=== PATIENT | male | born 1930 | race Caucasian/White ===

== ENCOUNTER 2016-08-18 20:17 | Inpatient (IN) | payer MEDICARE, BC ==
[2016-08-18] MEDS ORDERED: HYDROmorphone HCL 1 MG/ML DISP.SYRIN IV ONE (21:01)
--- OUTSIDE RECORDS SUMMARY | 2016-08-18 21:07 | XMS REPORT | Continuity of Care Document ---
:1930 Author Organization [facility] ([facility]) Address [address] [place] [address] Phone [phone] Care Team Providers Name Role Phone Frank Pérez Primary Care Provider [phone] Source Comments This disclosure is being made pursuant to the Care Everywhere program, applicable federal and state laws, and may not contain all informaitonavailable regarding this patient.[facility] ([facility]) Active Allergies and Adverse Reactions Allergen Noted Date Severity Reactions Comments No Known Allergies 05/04/2011 NO REACTION Current Medications Prescription Sig. Disp. Refills Start Date End Date Status allopurinol 300 mg tablet Take 100 mg by Active mouth 2 times daily nitroglycerin 0.[address] 0.4 mg under Active tablet the tongue every 5 minutes as needed. diltiazem 180 mg ER Take 180 mg by Active capsule mouth daily furosemide 20 mg tablet Take 80 mg by mouth Active daily. CALCIUM CARBONATE/VITAMIN Active D3 (VITAMIN D-3 PO) isosorbide mononitrate 30 Take 30 mg by mouth Active mg CR tablet every morning. losartan 25 mg tablet Take 12.5 mg by Active mouth daily. warfarin PO Active finasteride 5 mg tablet Take 5 mg by mouth Active daily. tamsulosin 0.4 mg capsule Take 0.4 mg by Active mouth daily. simvastatin 10 mg tablet Take 10 mg by mouth Active every evening. Active Problems Problem Noted Date Atrial flutter 11/20/2014 Renal insufficiency 11/20/2014 Hyperlipidemia 11/20/2014 Coronary artery disease 11/20/2014 Gout 11/20/2014 GERD (gastroesophageal reflux disease) 11/20/2014 Diverticulitis 11/20/2014 Paroxysmal atrial fibrillation 11/20/2014 HTN (hypertension) 09/17/2010 Most Recent Encounters Date Type Specialty Providers Description 06/23/2016 Office Visit Heart and Vascular Alexander Olson MD Chief Comp: Patient Reported Reason For Visit 06/09/2016 Office Visit [facility] and Vascular Alexander Olson MD Chief Comp: Patient Pinky Coe ARNP Reported Reason For Visit 05/26/2016 Office Visit [facility] and Vascular Alexander Olson MD Chief Comp: Patient Pinky Coe ARNP Reported Reason For Visit Social History Tobacco Use Types Packs/Day Years Used Date Former Smoker Cigars Smokeless Tobacco: Never Used Alcohol Use Drinks/Week oz/Week Comments Yes Last Filed Vital Signs Vital Sign Reading Time Taken Blood Pressure 125/72 03/30/2016 9:02 AM [employer]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 Pulse 84 03/30/2016 9:02 AM 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 Temperature 36.6 C (97.9 F) 05/06/2011 10:55 AM TIEING 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 Respiratory Rate 14 09/16/2015 11:13 AM CDT Height 1.829 m (6') 09/16/2015 11:13 AM CDT Weight 91.3 kg (201 lb 4.5 oz) 03/30/2016 9:02 AM TIEING 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 Body Mass Index 27.29 03/30/2016 9:02 AM TIEING 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 Oxygen Saturation - - Plan of Care Health Maintenance Due Date Last Done Comments Hepatitis B Vaccine (1 of 3 - Primary Series) 1930 Tdap Vaccine 1941 Lipid Disorder Screening 1948 Td Vaccine 1948 Zoster Vaccine 1990 Pneumococcal Vaccine (1 of 2 - PCV13) 1995 Influenza Vaccine: Seasonal (#1) 10/07/2015 Results from Last 3 Months Not on file
[2016-08-18] MEDS ORDERED: HYDROmorphone HCL 1 MG/ML DISP.SYRIN ONE (21:09)
--- NOTE | 2016-08-18 21:13 | ERNOTE ---
Chest Pain/Cardiac HPI Date of Service: 08/18/16 Chief Complaint: Chest Pain Source: patient, family Exam Limitations: no limitations Immunizations: IMMUNIZATION HX Immunizations Up to Date Yes History of Influenza Vaccine Yes Hx Pneumococcal Vaccination Yes Allergies/Adverse Reactions: Allergies No Known Allergies Allergy (Verified 08/18/16 20:48) Home Medications: HOME MEDICATIONS Allopurinol [Zyloprim] 100 mg PO BID 11/03/15 [Last Taken Unknown] Calcitriol 0.25 mcg PO MOWEFR 11/03/15 [Last Taken Unknown] Cholecalciferol (Vitamin D3) [Vitamin D3] 2,000 unit PO DAILY 11/03/15 [Last Taken Unknown] Diltiazem HCl [Cardizem LA] 180 mg PO DAILY 11/03/15 [Last Taken Unknown] Furosemide [Lasix] 20 mg PO Q2D 11/03/15 [Last Taken Unknown] Isosorbide Mononitrate [Imdur] 30 mg PO DAILY 11/03/15 [Last Taken Unknown] Losartan Potassium [Cozaar] 25 mg PO HS 11/03/15 [Last Taken Unknown] Nitroglycerin 0.4 mg SL PRN PRN 11/03/15 [Last Taken Unknown] Simvastatin [Zocor] 10 mg PO HS 11/03/15 [Last Taken Unknown] Warfarin Sodium [Coumadin] 5 mg PO DAILY 11/03/15 [Last Taken Unknown] Furosemide [Lasix] 80 mg PO Q2D 08/18/16 [Last Taken Unknown] Narrative: Has had non-productive cough for several days. Today became more SOB and developed lower sub-sternal chest pain. Seemed to come on rapidly and has been associated with chills. No radiation of CP, diaphoresis, arm pain or radiation. Has also noted swelling of ankles despite taken his daily lasix. Seen by PCP on Wednesday and scheduled to see cardiology for routine check tomorrow. Did not take any meds for pain prior to ED. Review of Systems - Review of Systems Constitutional: Present: chills EYE: Present: no symptoms reported ENT: Present: no symptoms reported Respiratory: Present: shortness of breath Cardiology: Present: chest pain Gastrointestinal/Abdominal: Present: no symptoms reported Genitourinary: Present: no symptoms reported Musculoskeletal: Present: no symptoms reported Skin: Present: no symptoms reported Neurological: Present: no symptoms reported - Patient's Past Medical History Patient History - Medical: GERD, Osteoarthritis, Renal Disease, Other Patient History - Cardiac/Respiratory: Atrial Fibrillation, Arrhythmias, Other - CHD s/p CABG Patient History - Cancer: No Hx of Cancer Patient History - Surgical Procedures: Other Patient History - Other: None - Family History Father Family History - Medical: , No pertinent hx Family History - Cardiac/Respiratory: Coronary Heart Disease Family History - Cancer: Pancreatic Mother Family History - Medical: , No pertinent hx - Social History Living Situations: spouse Abuse History: No History of abuse Psych History: No pertinent hx Smoking Status: Former smoker Have you smoked in the past 12 months: No Do you dip or chew tobacco: No Alcohol Use: occasionally Drug Use: none - Immunizations Immunizations Up to Date: Yes Hx Pneumococcal Vaccination: Yes History of Influenza Vaccine: Yes Physical Exam - Physical Exam General Appearance: Present: wd/wn, alert, mild distress Eye Exam: Normal inspection: bilateral Ears, Nose, Throat: Present: normal ENT inspection Neck: Present: normal inspection Respiratory: Present: chest nontender, lungs clear, decreased breath sounds Cardiovascular/Chest: Present: other - irregular Peripheral Pulses: N=norm/S=strong/W=weak/B=bound/A=absent: Dorsalis-pedis (R): Weak, Dorsalis-pedis (L): Weak Gastrointestinal/Abdominal: Present: nontender, soft Extremity Exam: Present: normal inspection, non-tender, extremity edema Neurological Exam: Present: alert, oriented, normal mood/affect, no motor/ sensory deficits ED Progress - Results and Orders Patient's Lab Results:: I have reviewed the patient's lab results. - Vital Signs Patient's Vital Signs:: I have reviewed the patient's vital signs. 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 Discussed with Patient and hospitalist. Will admit for obs Plan - Plan Plan: admit obs Departure - Departure Clinical Impression: Pneumonia, CHF (congestive heart failure) Disposition: [facility] Condition: Fair Referrals: Frank Pérez MD [Primary Care Provider] -
[2016-08-18 21:16] LABS: Hematocrit 39.2 % (42.0-52.0); Hemoglobin 13.6 gm/dL (13.5-18.0); Mean Cell Volume 92.2 fl (78-100); Mean Corpuscular Hgb Conc 34.7 g/dl (32-36); Mean Platelet Volume 8.8 fl (6.0-9.5); Neutrophil # 11.1 K/mm3 (1.3-6.0); Neutrophil % 82.2 % (42-75.0); Platelet Count 177 K/mm3 (150-450); Red Blood Count 4.25 M/mm3 (4.7-6.0); Red Cell Distribution Width 16.7 % (11.5-14.0); White Blood Count 13.5 K/mm3 (4.0-10.5)
[2016-08-18 21:35] LABS: Troponin I 0.109 ng/ml (0.00-0.10)
[2016-08-18 21:37] LABS: Albumin * 3.8 gm/dl (3.4-5.0); Anion Gap 12.4 mmol/L (6.8-13.8); BUN/Creatinine Ratio 27.3 (9.0-21.6); Ca. Corrected For Albumin 9.2 mg/dL (8.4-10.2); Calcium * 9.4 mg/dL (7.9-10.9); Potassium 3.4 mmol/L (3.4-4.6); Total Protein 7.3 gm/dL (6.2-8.2)
[2016-08-18 21:38] LABS: Prothrombin Time (Patient) 19.8 Seconds (9.4-11.4)
[2016-08-18 21:40] LABS: INR 1.9 INR (0.90-1.10); Partial Thrombolplastin Time 32.3 Seconds (24-32)
[2016-08-18] MEDS ORDERED: FUROSEMIDE 10 MG/ML VIAL IV ONE (21:50)
[2016-08-18] MEDS ORDERED: FUROSEMIDE 10 MG/ML VIAL ONE (21:52)
--- OUTSIDE RECORDS SUMMARY | 2016-08-18 22:22 | XMS REPORT | Continuity of Care Document ---
:1930 Author Organization [facility] ([facility]) Address [address] 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
--- NOTE | 2016-08-18 23:16 | HP ---
Chief Complaint - Chief Complaint Date of Service: 08/18/16 Time of Service: 23:15 Chief Complaint: "Chest pain, coughing, SOB". Source of HPI- Pt; unreliable, Pt's Rivka, ER provider report. History of Present Illness: Mr. Montgomery is a 86-yr-old WM pt of Dr. Frank Pérez with a PMH of: A-fib , CKD, CHF, GERD, Gout, HLD,HTN & Sleep Apnea. Pt appears forgetful and therefore history was obtained from his Spouse, Rivka. Rivka states that yesterday, Mr. Montgomery developed body aches and coughing. Then today at 6.00 pm , he had chills and got SOB after dinner. He went to bed early and kept checking on him and noticed that he wasn't resting comfortably. He persuaded him to come to the ED to be evaluated. She reports that Mr. Montgomery has had increasing leg swelling despite him taking the Lasix 80mg daily as prescribed. She denies him having n/v, diarrhea, and abdominal pain. She states that he complained of chest pain all over his chest wall area, but there was no associated symptoms of diaphoresis and n/v. Pt states that he had an CA 10 yrs ago and his insisted that he needed to be checked out. During evaluation at the ED, he had Dilaudid which he says eased his chest pain. The CXR obtained had findings concerning for Pulmonary edema and Pneumonia as well. His WBC was elevated at 13,500 with a Left shift. BNP was also elevated at 3307. He was also found to be tachycardia and tachypneic at the ED. While on the Med-surge floor, his POX level dropped to 81% RA thus requiring oxygen supplementation to maintain > 90%. He had elevated troponin of 0.109 at the ED also but the EKG did not have any ST-T wave changes. At the time of physical exam, he denies having Chest Pain and is in no distress. He will need to be admitted inpatient for a minimum of 2 as he as a pneumonia severity score of 3 on CURB- 65 which carries 14.0% mortality risk and calls for inpatient treatment with possible ICU admission. He also has clinical signs of CHF exacerbation and will require IV diuretics. - Patient's Past Medical History Patient History - Medical: GERD, Osteoarthritis, Renal Disease, Other - Gout Patient History - Cardiac/Respiratory: Atrial Fibrillation, Arrhythmias, Coronary Heart Disease, CHF, Hypertension, CPAP/BiPAP Home Use, Other - CHD s/p CABG Patient History - Cancer: No Hx of Cancer Patient History - Surgical Procedures: Other Patient History - Other: None - Family History Father Family History - Medical: , No pertinent hx Family History - Cardiac/Respiratory: Coronary Heart Disease Family History - Cancer: Pancreatic Mother Family History - Medical: , No pertinent hx - Social History Living Situations: spouse Abuse History: No History of abuse Psych History: No pertinent hx Smoking Status: Former smoker Have you smoked in the past 12 months: No Do you dip or chew tobacco: No Alcohol Use: occasionally Drug Use: none - Immunizations Immunizations Up to Date: Yes Hx Pneumococcal Vaccination: Yes History of Influenza Vaccine: Yes Review Of Systems (GEN) - Review of Systems Generalized/Overall Review: Present: Chills, Malaise. Absent: Weakness, Fever, Diaphoresis EENTM: Absent: Eye Pain, Blurred Vision, Double Vision, Nose Congestion, Throat Pain Respiratory: Present: Cough, Shortness of Breath Cardiac: Present: Chest Pain. Absent: Edema, Palpitations, Syncope Abdominal: Absent: Nausea, Vomiting, Hematemesis, Abdominal Pain, Constipation, Diarrhea, Melena Genitourinary: Present: Frequency. Absent: Burning, Hematuria Musculoskeletal: Absent: Joint Pain, Back Pain, Joint Swelling Neurological: Absent: Headache, Anxiety, Depressed, Weakness Skin: Present: Bruising. Absent: Dryness, Lesions, Lumps Endocrine: Present: Intolerance to Cold. Absent: Intolerance to Heat, Increased Hunger, Increased Thirst Misc: All systems neg except as marked Allergies/Adverse Reactions: Allergies Allergy/AdvReac Type Severity Reaction Status Date / Time No Known Allergies Allergy Verified 08/18/16 20:48 Home Medications: HOME MEDICATIONS Allopurinol [Zyloprim] 100 mg PO BID 11/03/15 [Last Taken Unknown] Calcitriol 0.25 mcg PO MOWEFR 11/03/15 [Last Taken Unknown] Cholecalciferol (Vitamin D3) [Vitamin D3] 2,000 unit PO DAILY 11/03/15 [Last Taken Unknown] Diltiazem HCl [Cardizem LA] 180 mg PO DAILY 11/03/15 [Last Taken Unknown] Furosemide [Lasix] 40 mg PO Q2D 11/03/15 [Last Taken Unknown] Isosorbide Mononitrate [Imdur] 30 mg PO DAILY 11/03/15 [Last Taken Unknown] Losartan Potassium [Cozaar] 25 mg PO HS 11/03/15 [Last Taken Unknown] Nitroglycerin 0.4 mg SL PRN PRN 11/03/15 [Last Taken Unknown] Simvastatin [Zocor] 10 mg PO HS 11/03/15 [Last Taken Unknown] Warfarin Sodium [Coumadin] 5 mg PO DAILY 11/03/15 [Last Taken Unknown] Furosemide [Lasix] 80 mg PO Q2D 08/18/16 [Last Taken Unknown] Finasteride [Proscar] 5 mg PO DAILY 08/19/16 [Last Taken Unknown] Tamsulosin HCl 0.4 mg PO DAILY 08/19/16 [Last Taken Unknown] Warfarin Sodium [Coumadin] 2.5 mg PO 2XW 08/19/16 [Last Taken Unknown] Exam - Exam Vital Signs: Vital Signs - Last Taken Temp 37.8 C H 08/18/16 22:42 Pulse 96 08/18/16 22:42 Resp 18 08/18/16 22:42 BP 106/59 08/18/16 22:42 Pulse Ox 96 08/18/16 22:42 Constitutional: Present: Alert, Oriented x3, Cooperative, No distress ENT Exam: Present: normal ENT inspection, hearing grossly normal, hard of hearing, dry mucous membranes. Absent: nasal congestion, nasal drainage Eye Exam: bilateral eye: normal inspection, PERRL Neck: Present: full range of motion, supple, normal inspection Back Exam: Present: normal inspection, no CVA tenderness Breasts: Present: Exam deferred Respiratory: Present: no accessory muscle use, rales - Iván bases, No wheezing Cardiovascular/Chest: Present: regular rate, rhythm, no murmur Abdomen: Present: Normal bowel sounds, soft, nontender /Rectal: Present: Exam deferred Extremity: Present: lower extremity edema - + 3 tibial/pedal edema Skin Exam: Present: cool/dry, other - Bruising scattered. Lymphatic: Present: no adenopathy Neurologic: Present: no motor/sensory deficits, alert, oriented x 3 Appearance: Present: appropriate appearance, appropriate insight Eye contact: Present: cooperative, good eye contact, normal speech Thoughts: Present: normal thought pattern, no apparent hallucination Diagnostic Studies: Abnormal Lab Results 08/18/16 Range/Units 22:20 Troponin I 0.120 H* (0.00-0.10) ng/ml Laboratory Results WBC 13.5 K/mm3 (4.0-10.5) H 08/18/16 21:05 RBC 4.25 M/mm3 (4.7-6.0) L 08/18/16 21:05 Hgb 13.6 gm/dL (13.5-18.0) 08/18/16 21:05 Hct 39.2 % (42.0-52.0) L 08/18/16 21:05 MCV 92.2 fl (78-100) 08/18/16 21:05 MCH 32.0 pg (27-31) H 08/18/16 21:05 MCHC 34.7 g/dl (32-36) 08/18/16 21:05 RDW 16.7 % (11.5-14.0) H 08/18/16 21:05 Plt Count 177 K/mm3 (150-450) 08/18/16 21:05 MPV 8.8 fl (6.0-9.5) 08/18/16 21:05 Immature Gran % (Auto) 0.50 % (0.001-0.429) H 08/18/16 21:05 Immature Gran # (Auto) 0.07 K/mm3 (0.000-0.0310) H 08/18/16 21:05 Neutrophils % 82.2 % (42-75.0) H 08/18/16 21:05 Lymphocytes % 9.1 % (20-51) L 08/18/16 21:05 Monocytes % 7.1 % (0.0-9) 08/18/16 21:05 Eosinophils % 0.8 % (0.0-3.0) 08/18/16 21:05 Basophils % 0.3 % (0.0-1.0) 08/18/16 21:05 Nucleated RBC % 0.0 k/mm3 (0-1) 08/18/16 21:05 Neutrophils # 11.1 K/mm3 (1.3-6.0) H 08/18/16 21:05 Lymphocytes # 1.2 k/mm3 (1.5-3.5) L 08/18/16 21:05 Monocytes # 1.0 k/mm3 (0.0-1.0) 08/18/16 21:05 Eosinophils # 0.1 k/mm3 (0.0-0.7) 08/18/16 21:05 Absolute Basophils 0.0 k/mm3 (0.0-0.1) 08/18/16 21:05 PT 19.8 Seconds (9.4-11.4) H 08/18/16 21:05 INR (Anticoag Therapy) 1.90 INR (0.90-1.10) H 08/18/16 21:05 PTT ([place]) 32.3 Seconds (24-32) H 08/18/16 21:05 Sodium 137 mmol/L (132-142) 08/18/16 21:05 Plasma Sodium 138 mmol/L (130-142) 08/18/16 21:05 Potassium 3.4 mmol/L (3.4-4.6) 08/18/16 21:05 Chloride 98 mmol/L (97-106) 08/18/16 21:05 Carbon Dioxide 30.0 mmol/L (24-32.6) 08/18/16 21:05 Anion Gap 12.4 mmol/L (6.8-13.8) 08/18/16 21:05 BUN 35 mg/dL (6-23) H 08/18/16 21:05 Creatinine 1.28 mg/dL (0.4-1.4) 08/18/16 21:05 Est GFR (Non-Af Amer) 57 mL/min (60-130) L 08/18/16 21:05 BUN/Creatinine Ratio 27.3 (9.0-21.6) H 08/18/16 21:05 Random Glucose 138 mg/dL (70-110) H 08/18/16 21:05 Calcium 9.4 mg/dL (7.9-10.9) 08/18/16 21:05 Calcium Adj for Albumin 9.2 mg/dL (8.4-10.2) 08/18/16 21:05 Total Bilirubin 1.0 mg/dL (0.0-1.1) 08/18/16 21:05 AST 28 U/L (0-48) 08/18/16 21:05 ALT 38 U/L (19-67) 08/18/16 21:05 Alkaline Phosphatase 107 U/L (50-170) 08/18/16 21:05 Troponin I 0.120 ng/ml (0.00-0.10) H* 08/18/16 22:20 B-Natriuretic Peptide 3307 pg/mL (5-650) H 08/18/16 21:05 Total Protein 7.3 gm/dL (6.2-8.2) 08/18/16 21:05 Albumin 3.8 gm/dl (3.4-5.0) 08/18/16 21:05 Assessment/Plan - Assessment/Plan (1) Pneumonia Assessment: Mr. Montgomery presented with clinical signs suggestive of Pneumonia- SOB, chills, coughing and he had an elevated WBC of 13,500 with a left shift. He also had desaturations to 81% RA and required oxygen supplementation. The CXR did show bibasilar opacities which may be early signs of pneumonia. Will treat as CAP with Rocephin and Azithromycin. Check urine legionella, strep Ag urine and sputum culture. Utilize cornet q 2 hrs. Encourage ambulation, cough and deep breathing. Blood cultures pending. CBC in am. Problem: Acute (2) CHF exacerbation Assessment: Evidenced by signs of fluid overload- peripheral edema of 3 + pedal/tibial enema , SOB, elevated BNP of 3307 and CXR findings invoving increased instersitial lung markings. Received 40 mg at the ED. Given additional 120mg and metolazone 5 mg while at the med surge floor. Nursing will monitor accurate i/o. Check daily wts. Monitor electrolytes and kidney function. BMP in am. Problem: Acute (3) Chest pain, rule out acute myocardial infarction Assessment: I doubt that the C.P had cardiac involvement as it resolved with narcotics and no nitro was given at the ED. Also the EKG did not have any ST-T wave changes. The first Troponin was elevated at 0.109 & 0.120 however, this may be due CHF/ advanced Heart Failure or demand Ischemia- increased myocardial oxygen demand due to Afib with RVR/ A-fib or it can also be due to the elevated BNP which shows LV wall strain. He remains asymptomatic without any associated s/s of chest pain, n/v, diaphoresis, SOB, substernal chest pain with radiation to jaw/ arm/neck. Will monitor troponin in 6 hrs & repeat EKG and place on telemetry monitoring. Problem: Acute (4) HTN (hypertension) Assessment: Stable- On losartan & Imdur Problem: Chronic Qualifiers: Hypertension type: essential hypertension Qualified Code(s): I10 - Essential (primary) hypertension (5) Afib Assessment: Stable- Place on Remote telemetry monitoring. Continue Diltiazem and coumadin. Pharmacy to manage coumadin doses. Problem: Chronic (6) Obstructive sleep apnea Assessment: Will place on our CPAP until pt's home unit is brought. Problem: Chronic (7) Gout Problem: Chronic
[2016-08-19] MEDS ORDERED: METOLAZONE 5 MG TABLET PO SCH
[2016-08-19] MEDS: POTASSIUM CHLORIDE 20 MEQ TABLET.SA PO SCH ×3 (00:17→08:37)
[2016-08-19] MEDS: AZITHROMYCIN 500 MG in DEXTROSE 5 % IN WATER 250 ML IV SCH ×2 (01:05)
[2016-08-19] MEDS ORDERED: NITROGLYCERIN 0.4 MG/TAB BTL SL PRN (03:25)
[2016-08-19 04:09] LABS: Hematocrit 37.2 % (42.0-52.0); Hemoglobin 12.6 gm/dL (13.5-18.0); Mean Corpuscular Hemoglobin 31.5 pg (27-31); Mean Corpuscular Hgb Conc 33.9 g/dl (32-36); Neutrophil # 10.4 K/mm3 (1.3-6.0); Neutrophil % 84.9 % (42-75.0); Platelet Count 137 K/mm3 (150-450); Red Cell Distribution Width 16.5 % (11.5-14.0); White Blood Count 12.3 K/mm3 (4.0-10.5)
[2016-08-19 04:18] LABS: Anion Gap 13.2 mmol/L (6.8-13.8); BUN/Creatinine Ratio 26.5 (9.0-21.6); Calcium * 9.2 mg/dL (7.9-10.9); Carbon Dioxide 28.2 mmol/L (24-32.6); Estimated Creat Clear 39.6; Potassium 3.4 mmol/L (3.4-4.6)
--- NOTE | 2016-08-19 06:22 | PN ---
Subjective - Date and Time Seen Date: 08/19/16 Time: :17 Subjective Narrative: Pt examined this am. He is alert and in no distress. Denies feeling SOB or having chest pain. Diuresed 1400ml with IV Lasix. No other issues according to nursing. Objective - Vitals Vitals: Last Vital Signs Temp 36.8 C 08/19/16 03:29 Pulse 84 08/19/16 03:29 Resp 18 08/19/16 03:29 BP 111/63 08/19/16 03:29 Pulse Ox 92 08/19/16 03:29 - Abnormal Lab Findings Abnormal Lab Findings: Abnormal Lab Results 08/19/16 08/19/16 08/19/16 Range/Units 04:07 04:07 04:07 WBC 12.3 H (4.0-10.5) K/mm3 RBC 4.00 L (4.7-6.0) M/mm3 Hgb 12.6 L (13.5-18.0) gm/dL Hct 37.2 L (42.0-52.0) % MCH 31.5 H (27-31) pg RDW 16.5 H (11.5-14.0) % Plt Count 137 L (150-450) K/mm3 Immature Gran # (Auto) 0.04 H (0.000-0.0310) K/mm3 Neutrophils % 84.9 H (42-75.0) % Lymphocytes % 5.5 L (20-51) % Neutrophils # 10.4 H (1.3-6.0) K/mm3 Lymphocytes # 0.7 L (1.5-3.5) k/mm3 Monocytes # 1.1 H (0.0-1.0) k/mm3 BUN 39 H (6-23) mg/dL Creatinine 1.47 H (0.4-1.4) mg/dL Est GFR (Non-Af Amer) 48 L (60-130) mL/min BUN/Creatinine Ratio 26.5 H (9.0-21.6) Random Glucose 141 H (70-110) mg/dL Troponin I 0.173 H* (0.00-0.10) ng/ml - Exam Constitutional: Present: Alert, Oriented x3, Cooperative, No distress ENT Exam: Present: normal ENT inspection, hearing grossly normal Neck: Present: full range of motion, supple, normal inspection Respiratory: Present: rales - Bilateral bases. Cardiovascular/Chest: Present: no chest tenderness, no murmur, irregularly irregular Abdomen: Present: Normal bowel sounds, soft, nontender /Rectal: Present: Exam deferred Extremity: Present: normal range of motion, lower extremity edema - + 2-3 BLE Skin Exam: Present: other - Scattred bruising on BUE. Lymphatic: Present: no adenopathy Neurologic: Present: alert, normal mood/affect, oriented x 3 Appearance: Present: appropriate appearance, appropriate insight Eye contact: Present: cooperative, good eye contact, normal speech Thoughts: Present: normal thought pattern, no apparent hallucination Assessment/Plan Plan Narrative: Mr. Montgomery presented with clinical signs suggestive of Pneumonia- SOB, chills, coughing and he had an elevated WBC of 13,500 with a left shift, this am 12,300. He also had desaturations to 81% RA and required oxygen supplementation. The CXR did show bibasilar opacities which may be early signs of pneumonia. Will treat as CAP with Rocephin and Azithromycin. Check urine legionella, strep Ag urine and sputum culture. Utilize cornet q 2 hrs. Encourage ambulation, cough and deep breathing. Blood cultures pending. CBC in am. - Problems/Diagnosis (1) Pneumonia Problem: Acute (2) CHF exacerbation Problem: Acute Narrative: Evidenced by signs of fluid overload- peripheral edema of 3 + pedal/tibial enema , SOB, elevated BNP of 3307 and CXR findings invoving increased interstitial lung markings. Received 40 mg at the ED. Given additional 120mg and metolazone 5 mg while at the [facility] floor. He diuresed 1400ml. Will cut back today's dose to 40 mg. BUN/CR 35/1.28------>39/1.47 Nursing will monitor accurate i/o. Check daily wts. Monitor electrolytes and kidney function. BMP in am. (3) Chest pain, rule out acute myocardial infarction Problem: Acute Narrative: I doubt that the C.P had ACS/OR as it resolved with narcotics and no nitro was given at the ED. Also the EKG did not have any ST-T wave changes. The first Troponin was elevated at 0.109 & 0.120 however, this may be due CHF/advanced Heart Failure or demand Ischemia- increased myocardial oxygen demand due to Afib with RVR/ A-fib or it can also be due to the elevated BNP which shows LV wall strain. He remains asymptomatic without any associated s/s of chest pain, n /v, diaphoresis, SOB, substernal chest pain with radiation to jaw/arm/neck. Repeat Troponin in 6 hrs showed elevation to 0.173 & but no ST-T wave changes on EKG & He remains asymptomatic. (4) HTN (hypertension) Problem: Chronic Qualifiers: Hypertension type: essential hypertension Qualified Code(s): I10 - Essential (primary) hypertension Narrative: Stable- Place on Remote telemetry monitoring. Continue Diltiazem and Coumadin. Pharmacy to manage Coumadin doses. (5) Afib Problem: Chronic (6) Obstructive sleep apnea Problem: Chronic Narrative: Will use our CPAP until pt brings his home unit. (7) Gout Problem: Chronic
[2016-08-19] MEDS: ISOSORBIDE MONONITRATE 30 MG TAB.SR.24H PO SCH (08:36)
[2016-08-19] MEDS: FINASTERIDE 5 MG TABLET PO SCH (08:36)
[2016-08-19] MEDS: CHOLECALCIFEROL 1,000 UNIT CAPSULE PO SCH (08:36)
[2016-08-19] MEDS: ALLOPURINOL 100 MG TABLET PO SCH ×2 (08:36→20:19)
[2016-08-19] MEDS: DILTIAZEM HCL 180 MG CAP.SR.24H PO SCH (08:37)
[2016-08-19] MEDS: FUROSEMIDE 10 MG/ML VIAL IV SCH (08:37)
[2016-08-19] MEDS ORDERED: FUROSEMIDE 10 MG/ML VIAL IV SCH ×3 (09:00)
[2016-08-19] MEDS ORDERED: POTASSIUM CHLORIDE 20 MEQ TABLET.SA PO SCH (09:00)
[2016-08-19] MEDS ORDERED: WARFARIN SODIUM 5 MG TABLET PO SCH ×2 (09:00→17:00)
[2016-08-19] MEDS ORDERED: TAMSULOSIN HCL 0.4 MG CAP.SR.24H PO SCH ×2 (09:00→19:00)
[2016-08-19] MEDS ORDERED: SIMVASTATIN 10 MG TABLET PO SCH (21:00)
[2016-08-19] MEDS ORDERED: LOSARTAN POTASSIUM 50 MG TABLET PO SCH (21:00)
[2016-08-20] MEDS: AZITHROMYCIN 500 MG in DEXTROSE 5 % IN WATER 250 ML IV SCH ×2 (01:33)
[2016-08-20 05:06] LABS: Hematocrit 33.5 % (42.0-52.0); Hemoglobin 11.7 gm/dL (13.5-18.0); Mean Cell Volume 91.5 fl (78-100); Mean Corpuscular Hgb Conc 34.9 g/dl (32-36); Mean Platelet Volume 9.5 fl (6.0-9.5); Neutrophil % 78.7 % (42-75.0); Platelet Count 137 K/mm3 (150-450); Red Blood Count 3.66 M/mm3 (4.7-6.0); Red Cell Distribution Width 16.1 % (11.5-14.0); White Blood Count 10.2 K/mm3 (4.0-10.5)
[2016-08-20 05:37] LABS: INR 1.92 INR (0.90-1.10)
[2016-08-20 05:48] LABS: Anion Gap 10.9 mmol/L (6.8-13.8); BUN/Creatinine Ratio 31.6 (9.0-21.6); Calcium * 9.5 mg/dL (7.9-10.9); Carbon Dioxide 28.2 mmol/L (24-32.6); Estimated Creat Clear 42.8; Potassium 3.1 mmol/L (3.4-4.6)
[2016-08-20] MEDS: FINASTERIDE 5 MG TABLET PO SCH (08:53)
[2016-08-20] MEDS: CHOLECALCIFEROL 1,000 UNIT CAPSULE PO SCH (08:53)
[2016-08-20] MEDS: POTASSIUM CHLORIDE 20 MEQ TABLET.SA PO SCH (08:53)
[2016-08-20] MEDS: ISOSORBIDE MONONITRATE 30 MG TAB.SR.24H PO SCH (08:53)
[2016-08-20] MEDS: DILTIAZEM HCL 180 MG CAP.SR.24H PO SCH (08:53)
[2016-08-20] MEDS: ALLOPURINOL 100 MG TABLET PO SCH (08:53)
[2016-08-20] MEDS: FUROSEMIDE 10 MG/ML VIAL IV SCH (08:54)
--- NOTE | 2016-08-20 09:19 | PN ---
Progess Note - Interim Narrative: 08/20/16 09:19 Will follow up Echo . possible discharge this afternoon. he is feeling good.
[2016-08-20] MEDS ORDERED: FUROSEMIDE 10 MG/ML VIAL IV SCH (09:33)
[2016-08-20] MEDS ORDERED: POTASSIUM CHLORIDE 20 MEQ TABLET.SA PO ONE (10:00)
--- NOTE | 2016-08-20 10:27 | DS ---
(1) CHF exacerbation Diagnosis(s): will continue oral lasix on discharge. Echo showed significant change from last one except for suspicious PFO. Problem: Acute (2) Chest pain, rule out acute myocardial infarction Diagnosis(s): AMI ruled out. like due to increased demand ischemia from CHF. Echo showed no wall motion abnormality. Problem: Acute (3) Pneumonia Diagnosis(s): bibasilar opacities on admission . discharge with levaquin Problem: Acute Qualifiers: Pneumonia type: due to unspecified organism Laterality: bilateral Lung location: lower lobe of lung Qualified Code(s): J18.9 - Pneumonia, unspecified organism (4) Gout Problem: Chronic Qualifiers: Gout site: unspecified site Gout etiology: unspecified cause Chronicity: chronic Presence of tophus: without tophus Qualified Code(s): M1A.9XX0 - Chronic gout, unspecified, without tophus (tophi) (5) HTN (hypertension) Problem: Chronic Qualifiers: Hypertension type: essential hypertension Qualified Code(s): I10 - Essential (primary) hypertension (6) Obstructive sleep apnea Problem: Chronic (7) Afib Problem: Chronic Qualifiers: Atrial fibrillation type: chronic Qualified Code(s): I48.2 - Chronic atrial fibrillation (8) HTN (hypertension) Problem: Chronic Qualifiers: Hypertension type: essential hypertension Qualified Code(s): I10 - Essential (primary) hypertension Description of Stay: James Montgomery is a 86-yr-old WM pt with a PMH of: A-fib, CKD, CHF, GERD, Gout , HLD,HTN & Sleep Apnea who was admitted on 08/18/2016 for shortness of breath and chest pain.. Pt was poor historian and therefore history was obtained from his Spouse, Rivka. Rivka states\d that 1 day SUPPORT SERVICES REP, Mr. Montgomery developed body aches and coughing. Then on the day of admission at around 6.00 pm, he had chills and got SOB after dinner. He went to bed early and kept checking on him and noticed that he wasn't resting comfortably. He persuaded him to come to the ED to be evaluated. She reported that Mr. Montgomery has had increasing leg swelling despite him taking the Lasix 80mg daily as prescribed. She denied him having n/v, diarrhea, and abdominal pain. She states that he complained of chest pain all over his chest wall area, but there was no associated symptoms of diaphoresis and n/v. Pt states that he had an ME 10 yrs ago and his insisted that he needed to be checked out. During evaluation at the ED, he had Dilaudid which he said eased his chest pain. The CXR obtained had findings concerning for Pulmonary edema and Pneumonia as well. His WBC was elevated at 13 ,500 with a Left shift. BNP was also elevated at 3307. He was also found to be tachycardia and tachypneic at the ED. While on the Med-surge floor, his POX level dropped to 81% RA thus requiring oxygen supplementation to maintain > 90% . He had elevated troponin of 0.109 at the ED also but the EKG did not have any ST-T wave changes. This was felt to be due to increased demand ischemia from his CHF. His Echo did not show wall motion abnormality. He was diuresed with IV lasix. He improved clinically. He walked in the hallway with his O2 saturation not dropping below 94%. He is table to be discharged today. Procedures Performed: none Discharge Disposition: Home self care Disposition: Home self-care Condition: Fair Discharge Activity: Activity as tolerated Discharge Diet: Low salt Referrals: Frank Pérez MD [Primary Care Provider] - Problem Oriented Discharge Instructions to Patient/Family: Heart Failure, Easy- to-Read, Community-Acquired Pneumonia, Adult, [id number] Additional Patient Instructions (free text): Follow up with PCP in 1 week - Follow up with Dr. Pérez 08/27 at 1:15pm Prescriptions (Any new or edited meds): Levofloxacin [Levaquin] 500 mg PO DAILY #7 tab Complete Home Medications List: Complete Home Medication List: Allopurinol [Zyloprim] 100 mg PO BID 11/03/15 Calcitriol 0.25 mcg PO MOWEFR 11/03/15 Cholecalciferol (Vitamin D3) [Vitamin D3] 2,000 unit PO DAILY 11/03/15 Diltiazem HCl [Cardizem LA] 180 mg PO DAILY 11/03/15 Furosemide [Lasix] 40 mg PO Q2D 11/03/15 Isosorbide Mononitrate [Imdur] 30 mg PO DAILY 11/03/15 Losartan Potassium [Cozaar] 25 mg PO HS 11/03/15 Nitroglycerin 0.4 mg SL PRN PRN 11/03/15 Simvastatin [Zocor] 10 mg PO HS 11/03/15 Warfarin Sodium [Coumadin] 5 mg PO MOTUWEFRSA 11/03/15 Furosemide [Lasix] 80 mg PO Q2D 08/18/16 Finasteride [Proscar] 5 mg PO DAILY 08/19/16 Tamsulosin HCl 0.4 mg PO DAILY 08/19/16 Warfarin Sodium [Coumadin] 2.5 mg PO SUTH 08/19/16 Levofloxacin [Levaquin] 500 mg PO DAILY #7 tab 08/20/16
[2016-08-20] MEDS ORDERED: FUROSEMIDE 10 MG/ML VIAL IV ONE (10:30)
[2016-08-20 11:08] VITALS: BP 110/56
[2016-08-20] MEDS ORDERED: WARFARIN SODIUM 2.5 MG TABLET PO SCH (17:00)
[2016-08-21] MEDS ORDERED: FUROSEMIDE 10 MG/ML VIAL IV SCH (09:00)
--- NOTE | 2016-08-21 12:46 | ECHO ---
This report is available in the EMR
== END 2016-08-20 13:05 | disposition home or self-care (01) | DRG 193 ==
LOC: ER 20:17 → MS 22:16 → OBSVTOIN 23:43
PROVIDERS: ADMIT Internal Medicine; ATTEND Internal Medicine
PROC: B246ZZZ Ultrasonography of Right and Left Heart (ICD-10-PCS; principal; 2016-08-19)
DX: J18.9 Pneumonia, unspecified organism (principal); I50.31 Acute diastolic (congestive) heart failure; I24.8 Other forms of acute ischemic heart disease; I48.2 Chronic atrial fibrillation; I10 Essential (primary) hypertension; I25.10 Atherosclerotic heart disease of native coronary artery without angina pectoris; Z87.891 Personal history of nicotine dependence; Z95.1 Presence of aortocoronary bypass graft; Z79.01 Long term (current) use of anticoagulants
CPT/HCPCS: 36415; 71010; 71020; 80048; 80053; 83880; 84484; 85025; 85610; 85730; 87040; 87449; 93005; 93306; 94660; 96374; 96375; 97116; 97161; 97165; 97535; 99284; G8987; G8988; G8989

== ENCOUNTER 2017-01-13 10:22 | Emergency (ER) | payer MEDICARE, BC ==
[2017-01-13 10:55] LABS: Hematocrit 36.1 % (42.0-52.0); Hemoglobin 12.5 gm/dL (13.5-18.0); Mean Corpuscular Hemoglobin 32.2 pg (27-31); Mean Corpuscular Hgb Conc 34.6 g/dl (32-36); Mean Platelet Volume 8.5 fl (6.0-9.5); Neutrophil # 8.5 K/mm3 (1.3-6.0); Neutrophil % 78.3 % (42-75.0); Platelet Count 199 K/mm3 (150-450); Red Blood Count 3.88 M/mm3 (4.7-6.0); Red Cell Distribution Width 16.8 % (11.5-14.0); White Blood Count 10.9 K/mm3 (4.0-10.5)
[2017-01-13 11:06] LABS: Prothrombin Time (Patient) 13.2 Seconds (9.0-11.0)
[2017-01-13 11:13] LABS: INR 1.32 INR (0.90-1.10)
--- NOTE | 2017-01-13 11:13 | ERNOTE ---
Dyspnea - General Presenting Symptoms: shortness of breath Time Seen by Provider: 01/13/17 10:34 Source: patient Exam Limitations: no limitations - Immun/Allergies/Home Medications Immunizations: IMMUNIZATION HX Immunizations Up to Date Yes History of Influenza Vaccine No Hx Pneumococcal Vaccination Yes Allergies/Adverse Reactions: Allergies No Known Allergies Allergy (Verified 01/13/17 10:37) Home Medications: HOME MEDICATIONS Allopurinol [Zyloprim] 100 mg PO DAILY 11/03/15 [Last Taken Unknown] Calcitriol 0.25 mcg PO DAILY 11/03/15 [Last Taken Unknown] Cholecalciferol (Vitamin D3) [Vitamin D3] 2,000 unit PO DAILY 11/03/15 [Last Taken Unknown] Diltiazem HCl [Cardizem LA] 180 mg PO DAILY 11/03/15 [Last Taken Unknown] Isosorbide Mononitrate [Imdur] 30 mg PO DAILY 11/03/15 [Last Taken Unknown] Losartan Potassium [Cozaar] 12.5 mg PO DAILY 11/03/15 [Last Taken Unknown] Simvastatin [Zocor] 10 mg PO HS 11/03/15 [Last Taken Unknown] Warfarin Sodium [Coumadin] 5 mg PO DAILY 11/03/15 [Last Taken Unknown] Furosemide [Lasix] 80 mg PO DAILY 08/18/16 [Last Taken Unknown] - History of Present Illness Narrative: Patient believes that he has become a little more short of breath since receiving a cortisone injection in his back 3 days ago. Patient denies orthopnea and has chronic edema in both lower extremities, although this has improved since he been taking 80 mg Lasix a day over the past month or so. 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 fib Prior Treatment: Reports: recently seen, treated by physician Review of Systems - Review of Systems Constitutional: Present: See HPI EYE: Present: no symptoms reported ENT: Present: no symptoms reported Respiratory: Present: shortness of breath - subjective Cardiology: Present: palpitations Gastrointestinal/Abdominal: Present: no symptoms reported Genitourinary: Present: no symptoms reported Musculoskeletal: Present: no symptoms reported Skin: Present: no symptoms reported Neurological: Present: no symptoms reported Endocrine: Present: no symptoms reported Hematologic/Lymphatic: Present: no symptoms reported Psych: Present: no symptoms reported - Patient's Past Medical History Patient History - Medical: Arthritis, Renal Disease Patient History - Cardiac/Respiratory: Atrial Fibrillation, Arrhythmias, Coronary Heart Disease, CHF, Hypertension, CPAP/BiPAP Home Use, Sleep Apnea, Other Patient History - Cancer: No Hx of Cancer Patient History - Surgical Procedures: Coronary Bypass Surgery, Other Patient History - Other: None - Family History Father Family History - Medical: , No pertinent hx Family History - Cardiac/Respiratory: Coronary Heart Disease Family History - Cancer: Pancreatic Mother Family History - Medical: , No pertinent hx Family History - Cardiac/Respiratory: No pertinent hx Family History - Cancer: No pertinent family hx - Social History Living Situations: home Abuse History: No History of abuse Psych History: No pertinent hx Smoking Status: Former smoker - Immunizations Immunizations Up to Date: Yes Hx Pneumococcal Vaccination: Yes History of Influenza Vaccine: No Physical Exam - Physical Exam General Appearance: Present: wd/wn, alert, no apparent distress Head Exam: Present: normal inspection Eye Exam: Normal inspection: bilateral, PERRL: bilateral Ears, Nose, Throat: Present: normal ENT inspection, H, normal pharynx Neck: Present: normal inspection, nontender Respiratory: Present: no respiratory distress, normal breath sounds, no accessory muscle use, chest nontender, lungs clear Cardiovascular/Chest: Present: no murmur, normal peripheral pulses, irregularly irregular Gastrointestinal/Abdominal: Present: normal bowel sounds, nontender, nondistended, soft, no organomegaly Rectal Exam: Present: deferred Back Exam: Present: normal inspection, normal range of motion Extremity Exam: Present: normal inspection, non-tender, normal range of motion, pedal edema - chronic Neurological Exam: Present: alert, oriented, normal mood/affect Skin Exam: Present: normal color, warm/dry Lymphatic Exam: Present: no adenopathy ED Progress - Results and Orders Patient's Lab Results:: I have reviewed the patient's lab results. - Vital Signs Patient's Vital Signs:: I have reviewed the patient's vital signs. Vital Signs: Vital Signs 01/13/17 01/13/1717 10:32 10:43 10:48 Temperature 36.7 C Pulse Rate 92 92 92 Respiratory 31 H 24 H Rate Blood Pressure 135/72 151/73 O2 Sat by Pulse 97 97 Oximetry - EKG EKG: atrial fibrillation EKG read: Interp. by me - X-Ray X-Ray #1 X-Ray: chest Interpretation: Reviewed by me - Progress/Reassessment Chief Complaint: Dyspnea Plan - Plan Plan: While the patient does have an elevated troponin and an elevated BNP, they are chronically elevated and there are actually improved from the last lab draw in August. I discussed the case with Dr. Pérez and he requested that we increase the patient's Lasix from 80 mg to 120 mg a day. Patient will weigh himself every morning upon arising and will take the weights in to see Dr. Pérez next week. I suspect a simple removal of 3 pounds and the pulmonary vascular congestion will be improved. Departure Clinical Impression: CHF (congestive heart failure) Dyspnea Qualifiers: Dyspnea type: shortness of breath Qualified Code(s): R06.02 - Shortness of breath; R06.00 - Dyspnea, unspecified; R06.01 - Orthopnea - Departure Disposition: Home self-care Condition: Good Additional Instructions: Increase your Lasix to 120 mg a day, weigh yourself every day and see Dr. Pérez next week. Referrals: Frank Pérez MD [Primary Care Provider] -
[2017-01-13 11:18] LABS: Albumin * 3.3 gm/dl (3.4-5.0); Anion Gap 15.1 mmol/L (6.8-13.8); BUN/Creatinine Ratio 27.1 (9.0-21.6); Bilirubin, Total 1.6 mg/dL (0.0-1.1); Ca. Corrected For Albumin 9.5 mg/dL (8.4-10.2); Calcium * 9.3 mg/dL (7.9-10.9); Carbon Dioxide 28.3 mmol/L (24-32.6); Potassium 3.4 mmol/L (3.4-4.6); Total Protein 7.3 gm/dL (6.2-8.2)
[2017-01-13 11:24] LABS: Troponin I 0.143 ng/ml (0.00-0.10)
[2017-01-13 22:44] VITALS: BP 128/72
== END 2017-01-13 13:50 | disposition home or self-care (01) ==
LOC: ER 10:22
PROC: 4A033R1 Measurement of Arterial Saturation, Peripheral, Percutaneous Approach (ICD-10-PCS; principal; 2017-01-13)
DX: I50.9 Heart failure, unspecified (principal); R06.02 Shortness of breath; I48.91 Unspecified atrial fibrillation; Z79.01 Long term (current) use of anticoagulants; Z87.891 Personal history of nicotine dependence

== ENCOUNTER 2017-01-19 16:36 | Observation (INO) | payer MEDICARE, BC ==
[2017-01-19 17:01] LABS: Hematocrit 33.7 % (42.0-52.0); Hemoglobin 11.4 gm/dL (13.5-18.0); Mean Cell Volume 92.1 fl (78-100); Mean Corpuscular Hemoglobin 31.1 pg (27-31); Mean Corpuscular Hgb Conc 33.8 g/dl (32-36); Mean Platelet Volume 8.6 fl (6.0-9.5); Neutrophil # 8.6 K/mm3 (1.3-6.0); Neutrophil % 76.4 % (42-75.0); Platelet Count 220 K/mm3 (150-450); Red Blood Count 3.66 M/mm3 (4.7-6.0); Red Cell Distribution Width 16.7 % (11.5-14.0); White Blood Count 11.3 K/mm3 (4.0-10.5)
[2017-01-19 17:11] LABS: Prothrombin Time (Patient) 17.9 Seconds (9.0-11.0)
[2017-01-19 17:16] LABS: INR 1.78 INR (0.90-1.10)
[2017-01-19 17:27] LABS: Albumin * 3.2 gm/dl (3.4-5.0); Anion Gap 14.8 mmol/L (6.8-13.8); BUN/Creatinine Ratio 29.9 (9.0-21.6); Bilirubin, Total 1.6 mg/dL (0.0-1.1); CKMB 1.2 ng/mL (0.0-9.0); Ca. Corrected For Albumin 9.7 mg/dL (8.4-10.2); Calcium * 9.4 mg/dL (7.9-10.9); Carbon Dioxide 27.6 mmol/L (24-32.6); Chol/HDL Risk Ratio 2.7 mg/dL (3.3-5.0); Potassium 3.4 mmol/L (3.4-4.6); Total Protein 7.5 gm/dL (6.2-8.2)
[2017-01-19 17:34] LABS: Troponin I 0.1 ng/ml (0.00-0.10)
[2017-01-19] MEDS ORDERED: FLU VACC QS2017-18(6MOS UP)/PF 60 MCG/0.5 ML SYRINGE IM ONE (18:31)
[2017-01-19] MEDS ORDERED: NITROGLYCERIN 0.4 MG/TAB BTL SL PRN (19:36)
[2017-01-19] MEDS ORDERED: POTASSIUM CHLORIDE 20 MEQ TABLET.SA PO ONE (19:38)
[2017-01-19] MEDS ORDERED: FUROSEMIDE 10 MG/ML VIAL IV SCH (21:00)
[2017-01-19] MEDS ORDERED: SIMVASTATIN 20 MG TABLET PO SCH (21:00)
[2017-01-19] MEDS ORDERED: POTASSIUM CHLORIDE 20 MEQ TABLET.SA ONE (21:19)
[2017-01-19] MEDS: DOCUSATE SODIUM 100 MG CAPSULE PO SCH (21:21)
[2017-01-19] MEDS: WARFARIN SODIUM 5 MG TABLET PO SCH (21:22)
[2017-01-19] MEDS: METOLAZONE 5 MG TABLET PO SCH (21:22)
[2017-01-20] MEDS ORDERED: PANTOPRAZOLE SODIUM 20 MG TABLET.DR PO SCH (07:00)
--- NOTE | 2017-01-20 08:08 | PN ---
Griffin Note - Interim Narrative: 01/20/17 08:06 Lost 2.1 Kg . Clinically less SOB . Will continue this morming with IV Diuresis and will likely discharge patient this afternoon.
[2017-01-20] MEDS: DOCUSATE SODIUM 100 MG CAPSULE PO SCH (08:19)
[2017-01-20] MEDS: METOLAZONE 5 MG TABLET PO SCH (08:22)
[2017-01-20] MEDS ORDERED: ALLOPURINOL 100 MG TABLET PO SCH (09:00)
[2017-01-20] MEDS ORDERED: FUROSEMIDE 10 MG/ML VIAL IV SCH (09:00)
[2017-01-20] MEDS ORDERED: DILTIAZEM HCL 180 MG CAP.SR.24H PO SCH (09:00)
[2017-01-20] MEDS ORDERED: LOSARTAN POTASSIUM 50 MG TABLET PO SCH (09:00)
[2017-01-20] MEDS ORDERED: TAMSULOSIN HCL 0.4 MG CAP.SR.24H PO SCH (09:00)
[2017-01-20] MEDS ORDERED: ISOSORBIDE MONONITRATE 30 MG TAB.SR.24H PO SCH (09:00)
[2017-01-20] MEDS ORDERED: ISOSORBIDE MONONITRATE 120 MG TAB.SR.24H PO SCH (09:00)
[2017-01-20] MEDS ORDERED: CALCITRIOL 0.25 MCG CAPSULE PO SCH (09:00)
[2017-01-20] MEDS ORDERED: CHOLECALCIFEROL 1,000 UNIT CAPSULE PO SCH (09:00)
[2017-01-20] MEDS ORDERED: FLU VACC QS2017-18(6MOS UP)/PF 60 MCG/0.5 ML SYRINGE IM ONE (09:00)
[2017-01-20 09:07] LABS: Prothrombin Time (Patient) 21.3 Seconds (9.0-11.0)
[2017-01-20 09:08] LABS: INR 2.11 INR (0.90-1.10)
[2017-01-20] MEDS: POTASSIUM CHLORIDE 20 MEQ TABLET.SA PO SCH ×2 (09:58→17:04)
[2017-01-20 14:48] VITALS: BP 127/62
--- NOTE | 2017-01-20 16:22 | DS ---
(1) CHF exacerbation Diagnosis(s): acute on chronic. Problem: Acute Qualifiers: Congestive heart failure type: diastolic Qualified Code(s): I50.33 - Acute on chronic diastolic (congestive) heart failure (2) Dyspnea Problem: Resolved Qualifiers: Dyspnea type: shortness of breath Qualified Code(s): R06.02 - Shortness of breath; R06.00 - Dyspnea, unspecified; R06.01 - Orthopnea (3) Afib Problem: Chronic Qualifiers: Atrial fibrillation type: chronic Qualified Code(s): I48.2 - Chronic atrial fibrillation (4) Gout Problem: Chronic Qualifiers: Gout site: unspecified site Gout etiology: unspecified cause Chronicity: chronic Presence of tophus: without tophus Qualified Code(s): M1A.9XX0 - Chronic gout, unspecified, without tophus (tophi) (5) HTN (hypertension) Problem: Chronic Qualifiers: Hypertension type: essential hypertension Qualified Code(s): I10 - Essential (primary) hypertension Description of Stay: James Montgomery, is an 86-year-old white male, with previous medical history of Chronic congestive heart failure, diastolic, coronary artery disease, GERD, hypertension, who was admitted on 01/19/2017 for increasing shortness of breath and weight gain. 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 Since then he started getting short of breath and has been more swollen. He was in the emergency one week ago and his Lasix was increased to 120 mg Wednesday, Wednesday, Wednesday and 80 mg all other days. He followed up in my office yesterday and was of visibly and audibly short of breathing with panting sounds. He gained 9.5 pounds since his last visit. He was then admitted for acute exacerbation of his chronic congestive heart failure and was started on IV Lasix with metolazone. He diuresed significantly and his weight went down siginificantly as well. His legs are no longer swollen as before. He is stable now to be discharge and will follow-up with me in 2 weeks' time . We will need to make an earlier appointment with his stator connector , Dr. Olvera. Procedures Performed: none Discharge Disposition: Home self care Disposition: Home self-care Condition: Stable Discharge Activity: Activity as tolerated Discharge Diet: Low salt Referrals: Frank Pérez MD [Primary Care Provider] - Additional Patient Instructions (free text): Please make TCM appointment at discharge, if applicable. Thank you! Kalie @ [phone]. Follow up in 2 weeks. Make an appointment with is his cardilogist, Dr. Olvera in 1-2 weeks Prescriptions (Any new or edited meds): Furosemide [Lasix] 100 mg PO DAILY #30 tablet Potassium Chloride [K-Dur] 10 meq PO DAILY #30 tablet.sa Complete Home Medications List: Complete Home Medication List: Allopurinol [Zyloprim] 100 mg PO DAILY 11/03/15 Calcitriol 0.25 mcg PO DAILY 11/03/15 Cholecalciferol (Vitamin D3) [Vitamin D3] 2,000 unit PO DAILY 11/03/15 Diltiazem HCl [Cardizem LA] 180 mg PO DAILY 11/03/15 Isosorbide Mononitrate [Imdur] 30 mg PO DAILY 11/03/15 Losartan Potassium [Cozaar] 25 mg PO DAILY 11/03/15 Simvastatin [Zocor] 10 mg PO HS 11/03/15 Warfarin Sodium [Coumadin] 5 mg PO DAILY 11/03/15 Docusate Sodium [Colace] 100 mg PO BID 01/19/17 Nitroglycerin 0.4 mg SL PRN PRN 01/19/17 Omeprazole 20 mg PO DAILY 01/19/17 Tamsulosin HCl 0.4 mg PO DAILY 01/19/17 Warfarin Sodium [Coumadin] 2.5 mg PO DAILY 01/19/17 Furosemide [Lasix] 100 mg PO DAILY #30 tablet 01/20/17 Potassium Chloride [K-Dur] 10 meq PO DAILY #30 tablet.sa 01/20/17 Amb Orders for Discharge: Basic Metabolic Panel Time Frame: 1 Week, Location: Determined By Patient BNP * Time Frame: 1 Week, Location: Determined By Patient
[2017-01-20 16:49] LABS: Anion Gap 14.2 mmol/L (6.8-13.8); BUN/Creatinine Ratio 27.3 (9.0-21.6); Calcium * 9.6 mg/dL (7.9-10.9); Carbon Dioxide 29.7 mmol/L (24-32.6); Estimated Creat Clear 41.9; Potassium 3.9 mmol/L (3.4-4.6)
[2017-01-20] MEDS: WARFARIN SODIUM 5 MG TABLET PO SCH (17:04)
[2017-01-20] MEDS ORDERED: SIMVASTATIN 10 MG TABLET PO SCH (21:00)
[2017-01-21] MEDS ORDERED: WARFARIN SODIUM 2.5 MG TABLET PO SCH (17:00)
== END 2017-01-20 18:02 | disposition home or self-care (01) ==
LOC: MS 16:36
PROVIDERS: ADMIT Internal Medicine; ATTEND Internal Medicine
DX: I50.33 Acute on chronic diastolic (congestive) heart failure (principal); I48.2 Chronic atrial fibrillation; Z79.01 Long term (current) use of anticoagulants; M1A.9XX0 Chronic gout, unspecified, without tophus (tophi); I12.9 Hypertensive chronic kidney disease with stage 1 through stage 4 chronic kidney disease, or unspecified chronic kidney disease; N18.3 Chronic kidney disease, stage 3 (moderate); Z87.891 Personal history of nicotine dependence; Z68.25 Body mass index [BMI] 25.0-25.9, adult; Z23 Encounter for immunization; E78.5 Hyperlipidemia, unspecified
CPT/HCPCS: 36415; 71010; 80048; 80053; 80061; 82550; 82553; 83880; 84484; 85025; 85610; 90471; 90686; 93005; 94660; 96374; 96376; 97161; 97530; G0378; G0379; G8978; G8979; G8980

== ENCOUNTER 2017-11-04 13:39 | Observation (INO) ==
[2017-11-04 15:01] LABS: BNP * 5941 pg/mL (5-650); BUN/Creatinine Ratio 38.8 (9.0-21.6); Calcium * 10.5 mg/dL (7.9-10.9); Carbon Dioxide 30.6 mmol/L (24-32.6); Chloride 92 mmol/L (97-106); Glucose * 107 mg/dL (70-110); Potassium 3.6 mmol/L (3.4-4.6); Sodium 133 mmol/L (132-142)
[2017-11-04 15:11] LABS: Blood Urea Nitrogen 100 mg/dL (6-23)
[2017-11-04] MEDS: NORMAL SALINE 1,000 ML IV PRN (16:07)
[2017-11-04 16:17] LABS: Prothrombin Time (Patient) 20.3 Seconds (9.0-11.0)
[2017-11-04 16:21] LABS: INR 2.02 INR (0.90-1.10)
--- NOTE | 2017-11-04 16:50 | PN ---
Progess Note - Interim Date: 11/04/17 Time: 16:45 Narrative: 11/04/17 16:45 I saw and examined James Montgomery on the medical surgical floor on 11/04/2017 4 :45 PM. My physical findings and impression from the clinic are still the same. Still awaiting results of EKG, troponin, and renal ultrasound.
[2017-11-04] MEDS ORDERED: NITROGLYCERIN 0.4 MG/TAB BTL SL PRN (16:52)
[2017-11-04] MEDS ORDERED: WARFARIN SODIUM 2.5 MG TABLET PO SCH (17:00)
[2017-11-05] MEDS: NORMAL SALINE 1,000 ML IV PRN (01:55)
[2017-11-05] MEDS ORDERED: NORMAL SALINE 1,000 ML IV PRN (03:31)
[2017-11-05 05:37] LABS: Hematocrit 33.9 % (42.0-52.0); Hemoglobin 11.5 gm/dL (13.5-18.0); Mean Cell Volume 90.2 fl (78-100); Mean Corpuscular Hemoglobin 30.6 pg (27-31); Mean Corpuscular Hgb Conc 33.9 g/dl (32-36); Mean Platelet Volume 9.7 fl (8-11.3); Neutrophil # 4.6 K/mm3 (1.3-6.0); Neutrophil % 64.6 % (42-75.0); Platelet Count 178 K/mm3 (150-450); Red Blood Count 3.76 M/mm3 (4.7-6.0); Red Cell Distribution Width 15.1 % (11.5-14.0); White Blood Count 7.1 K/mm3 (4.0-10.5)
[2017-11-05 05:57] LABS: Anion Gap 9.3 mmol/L (6.8-13.8); BUN/Creatinine Ratio 45.9 (9.0-21.6); Calcium * 9.4 mg/dL (7.9-10.9); Carbon Dioxide 28.6 mmol/L (24-32.6); Estimated Creat Clear 29.1; Potassium 2.9 mmol/L (3.4-4.6)
--- NOTE | 2017-11-05 07:52 | PN ---
[facility]in Note - Interim Date: 11/05/17 Time: 07:44 Narrative: 11/05/17 07:44 The patient is feeling very good this morning. He has not had CP with this admission. His last one was the day before . His troponin is elevated- ACS vs ARF on CRF + AFib. EKG shows AFib with inferior [place] , old, anteorlateral [place] , indeteminate age. This EKG did not differ significantly from his prior EKG's. Will start ASA and plavix in case ( no boluses- his INR is 2.1). will continue with coumadin. Will get an Echo. Will talk to Dr. Olvera after wards. His BUN /CR is improved . His CHARITO shows chronic bladder outlet obstruction ( same as in 2016). No hydronephrosis but no mention of prostate. RV of 750 ml. His output is about 800 ml today. Will do a bladder scan today. I restarted anyway Flomax and proscar. Will schedule a Urology follow up appointment withhis urologist, Dr. Chan. 11/05/17 08:[address] Sidhu, Urologist - if improving kidney function will not need indwelling leger cath. agree with restarting flomax and Proscar. need close follow up.
[2017-11-05] MEDS ORDERED: POTASSIUM CHLORIDE 10 MEQ TABLET.SA PO ONE (08:19)
[2017-11-05 08:28] LABS: Prothrombin Time (Patient) 19.4 Seconds (9.0-11.0)
[2017-11-05 08:30] LABS: INR 1.93 INR (0.90-1.10)
[2017-11-05] MEDS ORDERED: FINASTERIDE 5 MG TABLET PO SCH (09:00)
[2017-11-05] MEDS ORDERED: CLOPIDOGREL BISULFATE 75 MG TABLET PO SCH (09:00)
[2017-11-05] MEDS ORDERED: POTASSIUM CHLORIDE 10 MEQ TABLET.SA PO SCH (09:00)
[2017-11-05] MEDS ORDERED: ASPIRIN 81 MG TAB.CHEW PO SCH (09:00)
[2017-11-05] MEDS ORDERED: ISOSORBIDE MONONITRATE 30 MG TAB.SR.24H PO SCH (09:00)
[2017-11-05] MEDS ORDERED: DILTIAZEM HCL 180 MG CAP.SR.24H PO SCH (09:00)
[2017-11-05] MEDS ORDERED: ALLOPURINOL 100 MG TABLET PO SCH (09:00)
[2017-11-05] MEDS ORDERED: LOSARTAN POTASSIUM 50 MG TABLET PO SCH (09:00)
[2017-11-05] MEDS ORDERED: CALCITRIOL 0.25 MCG CAPSULE PO SCH (09:00)
--- NOTE | 2017-11-05 13:05 | DS ---
(1) Acute renal failure Problem: Acute Qualifiers: (2) Chest pain Problem: Acute Qualifiers: (3) Elevated troponin Problem: Acute (4) Afib Problem: Chronic Qualifiers: (5) CHF (congestive heart failure) Problem: Chronic Qualifiers: (6) Gout Problem: Chronic Qualifiers: (7) HTN (hypertension) Problem: Chronic Qualifiers: (8) Obstructive sleep apnea Problem: Chronic (9) Bladder outlet obstruction Problem: Chronic (10) CRF (chronic renal failure) Problem: Acute Qualifiers: Chronic kidney disease stage: stage 3 (moderate) Qualified Code(s): N18.3 - Chronic kidney disease, stage 3 (moderate) Description of Stay: James Montgomery, is an 87 year old white male, who presents to the office on [id number] for a hospital follow up. 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 The patient was admitted for acute CHF exacerbation last 10/27/2017. He was diuresed with IV Lasix and metolazone. He was discharge on 80 mg of Lasix MWF and 60 mg of Lasix on all other days but has been doing 100 mg mg PO MWF and 60 mg all other days. He lost about 8.2 pounds. His BUN/creatinine though today is elevated at 100/2.5, up from when he was discharge of 52/1.63. His BNP went down to 5967 from 7003. He does have chest pain once in a while ( he had one yesterday), left-sided, lasting for only a few seconds, sharp in character, nonradiating. He was admitted then for IV fluids and serial EKG and troponin determination for his chest pain. His EKG showed atrial fibrillation rate controlled with inferior wall myocardial infarction probably old, anterolateral myocardial infarction of indeterminate age. His troponin was elevated 0.12, 0.16, and 0.17. Throughout the course of his hospital stay he has had no chest pain at all. He received about 2 L of IV fluids throughout his stay and his BUN/creatinine is 19 over 1.9, his BNP down to 5002, his chest x-ray showing no acute pulmonary edema. His elevated troponin was could be due to an acute coronary syndrome could also be due to to his acute on chronic renal failure, atrial fibrillation, left ventricular hypertrophy, and CHF. I did call over him with aspirin and Plavix just in case. I have scheduled him a stress test on an outpatient basis. I did try to get in touch with his head of quality last was unsuccessful. He is renal ultrasound showed chronic bladder outlet obstruction with no hydronephrosis. I restarted him on Flomax and Proscar. I was able to talk to a urologist and he agrees to the restart of these medications . We will continue to hold his lasix for another 2 days and restart it on Wednesday at 60 mg PO q daily. We will stop his ASA/Plavis after 2-3 days and continue with is Coumadin.Follow up with me on Wednesday. Procedures Performed: none Results and Findings: Lab Pending Results 11/04/17 13:47: Sodium 133, Plasma Sodium 133, Potassium 3.6, Chloride 92 L, Carbon Dioxide 30.6, Anion Gap 14.0 H, BUN 100 H D, Creatinine 2.58 H D, Est GFR (Non-Af Amer) 25 L D, BUN/Creatinine Ratio 38.8 H, Random Glucose 107, Calcium 10.5, B-Natriuretic Peptide 5941 H 11/04/17 16:04: PT 20.3 H, INR (Anticoag Therapy) 2.02 H 11/04/17 17:00: Troponin I 0.124 H* 11/04/17 23:07: Troponin I 0.168 H* 11/05/17 05:05: Troponin I 0.178 H* 11/05/17 05:29: WBC 7.1, RBC 3.76 L, Hgb 11.5 L, Hct 33.9 L, MCV 90.2, MCH 30.6 , MCHC 33.9, RDW 15.1 H, Plt Count 178, MPV 9.7, Immature Gran % (Auto) 0.30, Immature Gran # (Auto) 0.02, Neutrophils % 64.6, Lymphocytes % 18.9 L, Monocytes % 12.0 H, Eosinophils % 3.6 H, Basophils % 0.6, Nucleated RBC % 0.0, Neutrophils # 4.6, Lymphocytes # 1.35 L, Monocytes # 0.9, Eosinophils # 0.3, Absolute Basophils 0.0 11/05/17 05:29: Sodium 131 L, Plasma Sodium 131, Potassium 2.9 L, Chloride 96 L , Carbon Dioxide 28.6, Anion Gap 9.3, BUN 90 H, Creatinine 1.96 H D, Est GFR ( Non-Af Amer) 35 L D, BUN/Creatinine Ratio 45.9 H, Random Glucose 112 H, Calcium 9.4, B-Natriuretic Peptide 5122 H 11/05/17 05:29: PT 19.4 H, INR (Anticoag Therapy) 1.93 H Discharge Location: Home Disposition: Home self-care Condition: Stable Discharge Activity: Activity as tolerated Discharge Diet: Low salt Referrals: Frank Pérez MD [Primary Care Provider] - Additional Patient Instructions (free text): Follow up with me on Wednesday , next week. Prescriptions (Any new or edited meds): Aspirin [Aspirin Chewable] 81 mg PO DAILY #2 tab.chew Clopidogrel Bisulfate [Plavix] 75 mg PO DAILY #2 tab Finasteride [Proscar] 5 mg PO DAILY #30 tab Furosemide [Lasix] 60 mg PO DAILY #30 tab Isosorbide Dinitrate 60 mg PO DAILY #30 tab Tamsulosin HCl [Flomax] 0.4 mg PO DAILY@1800 #30 cap.sr.24h Complete Home Medications List: Complete Home Medication List: Calcitriol 0.25 mcg PO DAILY 11/03/15 Losartan Potassium [Cozaar] 12.5 mg PO DAILY 11/03/15 Warfarin Sodium [Coumadin] 2.5 mg PO SUTH 11/03/15 Nitroglycerin 0.4 mg SL PRN PRN 01/19/17 Warfarin Sodium 5 mg PO MOTUWEFRSA 10/27/17 allopurinol 100 mg tablet 100 mg PO DAILY tab 11/04/17 potassium chloride ER 10 mEq tablet,extended release 10 meq PO DAILY tab simvastatin 10 mg tablet 10 mg PO QPM 11/04/17 Aspirin [Aspirin Chewable] 81 mg PO DAILY #2 tab.chew 11/05/17 Clopidogrel Bisulfate [Plavix] 75 mg PO DAILY #2 tab 11/05/17 Finasteride [Proscar] 5 mg PO DAILY #30 tab 11/05/17 Furosemide [Lasix] 60 mg PO DAILY #30 tab 11/05/17 Isosorbide Dinitrate 60 mg PO DAILY #30 tab 11/05/17 Tamsulosin HCl [Flomax] 0.4 mg PO DAILY@1800 #30 cap.sr.24h 11/05/17 Amb Orders for Discharge: Basic Metabolic Panel Time Frame: 11/09/17, Location: Laboratory CBC Time Frame: 11/09/17, Location: Laboratory BNP * Time Frame: 11/09/17, Location: Laboratory Prothrombin Time Time Frame: 11/09/17, Location: Laboratory
[2017-11-05 13:22] VITALS: BP 131/64
[2017-11-05] MEDS ORDERED: WARFARIN SODIUM 5 MG TABLET PO SCH (17:00)
[2017-11-05] MEDS ORDERED: TAMSULOSIN HCL 0.4 MG CAP.SR.24H PO SCH (18:00)
[2017-11-05] MEDS ORDERED: SIMVASTATIN 10 MG TABLET PO SCH (21:00)
--- NOTE | 2017-11-09 14:41 | ECHO ---
This report is available in the EMR
== END 2017-11-05 14:00 | disposition home or self-care (01) ==
LOC: MS 13:39 → LAB 13:39
PROVIDERS: ADMIT Internal Medicine; ATTEND Internal Medicine
DX: N18.3 Chronic kidney disease, stage 3 (moderate); I48.2 Chronic atrial fibrillation; N13.8 Other obstructive and reflux uropathy; R78.9 Finding of unspecified substance, not normally found in blood; N32.0 Bladder-neck obstruction; N17.9 Acute kidney failure, unspecified; I12.9 Hypertensive chronic kidney disease with stage 1 through stage 4 chronic kidney disease, or unspecified chronic kidney disease; M1A.9XX0 Chronic gout, unspecified, without tophus (tophi); I50.32 Chronic diastolic (congestive) heart failure; I10 Essential (primary) hypertension
CPT/HCPCS: 36415; 71020; 71046; 76770; 80048; 83519; 83880; 84484; 85025; 85610; 93005; 93306; 94660; 96360; 96361; G0378; G0379

== ENCOUNTER 2018-11-24 13:36 | Observation (INO) ==
--- NOTE | 2018-11-24 13:59 | ERNOTE ---
Dyspnea - Date Date of Service: 11/24/18 - General Presenting Symptoms: shortness of breath Time Seen by Provider: 11/24/18 13:51 Source: patient, family Exam Limitations: no limitations - Immun/Allergies/Home Medications Immunizations: IMMUNIZATION HX Immunizations Up to Date Yes History of Influenza Vaccine Yes Hx Pneumococcal Vaccination Yes Allergies/Adverse Reactions: Allergies No Known Allergies Allergy (Verified 11/24/18 13:41) Home Medications: HOME MEDICATIONS Calcitriol 0.25 mcg PO DAILY 11/03/15 [Last Taken 12/22/17] Losartan Potassium [Cozaar] 12.5 mg PO DAILY 11/03/15 [Last Taken 12/22/17] Nitroglycerin 0.4 mg SL PRN PRN 01/19/17 [Last Taken 12/22/17] simvastatin 10 mg tablet 10 mg PO QPM 11/04/17 [Last Taken 12/22/17] furosemide 40 mg tablet 60 mg PO DAILY #180 tab 01/24/18 [Last Taken Unknown] cholecalciferol (vitamin D3) 2,000 unit capsule 2,000 unit PO DAILY 03/07/18 [Last Taken Unknown] potassium chloride ER 10 mEq tablet,extended release 10 meq PO DAILY #90 tab 05/18/18 [Last Taken Unknown] tamsulosin 0.4 mg capsule 0.4 mg PO DAILY@1800 #90 cap 08/15/18 [Last Taken Unknown] diclofenac 20 mg/gram/actuation (2 %) topical soln metered-dose pump 2 pump TP BID #112 g 09/09/18 [Last Taken Unknown] traMADol HCL [Ultram] 50 mg PO QID PRN #20 tab 09/13/18 [Last Taken Unknown] warfarin 5 mg tablet 5 mg PO DAILY #90 tab 09/13/18 [Last Taken Unknown] allopurinol 100 mg tablet 200 mg PO DAILY #180 tab 10/13/18 [Last Taken Unknown] finasteride 5 mg tablet See Rx Instructions .ROUTE .COMPLEX #30 tablet 10/13/18 [Last Taken Unknown] isosorbide mononitrate ER 30 mg tablet,extended release 24 hr See Rx Instructions .ROUTE .COMPLEX #180 tablet 10/13/18 [Last Taken Unknown] - History of Present Illness Narrative: Patient presents to the ED for SOB. He relates that he has had 5 days of symptoms. Initially started with cough. Now cough improved but his SOB is worse. Especially with exertion. No fever. No CP. Has not seen anyone else for this. Severity: moderate Treatment APPLICATION ARCHITECT: none Initiating event: Reports: other - cough Frequency of episodes: Reports: no prior episodes Modifying Factors - (Improves): Reports: other - rest Modifying Factors (Worsens): Reports: activity Associated Symptoms-Dyspnea: Reports: cough, other - generalized weakness. Denies: fever/chills, chest pain/discomfort, ankle/leg swelling Prior Treatment: Denies: recently seen, currently on antibiotics Review of Systems - Review of Systems Constitutional: Absent: fever EYE: Present: no symptoms reported ENT: Absent: sore throat Respiratory: Present: shortness of breath, cough Cardiology: Absent: chest pain Gastrointestinal/Abdominal: Absent: abdominal pain Genitourinary: Absent: dysuria Neurological: Present: See HPI All Other Systems: All systems neg except as marked Medical History (Updated 09/13/18 @ 11:12 by Natalio Orozco DO) Stage III chronic kidney disease (Chronic) Hyperuricemia (Chronic) Metatarsalgia (Acute) Kidney stone (Acute) Atrial fibrillation CHF (congestive heart failure) Hypertension Kidney disease Surgical History: Surgical History (Updated 12/22/17 @ 13:36 by Ange Jaquez RN) Rotator cuff arthropathy of both shoulders (Acute) S/P triple vessel bypass (Acute) H/O hernia repair H/O lithotripsy Hx of heart bypass surgery Family History: Family History (Last Reviewed 11/24/18 @ 13:58 by Arian Garcia MD) Mother Hypertension Father Hypertension Social History: (Last Reviewed 11/24/18 @ 13:58 by Arian Garcia MD) Tobacco: Smoking Status: Former smoker Physical Exam - Physical Exam General Appearance: Present: alert, other - tachypnea noted with exertion Head Exam: Present: normal inspection, no evidence of injury Eye Exam: Normal inspection: bilateral, PERRL: bilateral Ears, Nose, Throat: Present: normal ENT inspection Neck: Present: normal inspection Respiratory: Present: normal breath sounds, lungs clear Cardiovascular/Chest: Present: normal peripheral pulses, irregularly irregular Gastrointestinal/Abdominal: Present: normal bowel sounds, nontender, nondistended, soft Back Exam: Absent: CVA tenderness (R), CVA tenderness (L) Extremity Exam: Present: normal range of motion, extremity edema Neurological Exam: Present: alert, no motor/sensory deficits Skin Exam: Present: normal color, warm/dry Progress - Results and Orders Patient's Lab Results:: I have reviewed the patient's lab results. - Vital Signs Patient's Vital Signs:: I have reviewed the patient's vital signs. Vital Signs: Vital Signs 11/24/18 13:37 Temperature 36.3 C Pulse Rate 78 Respiratory Rate 24 H Blood Pressure 124/57 O2 Sat by Pulse Oximetry 97 - EKG EKG #1 EKG read: Interp. by me EKG Comments: A fib rate 78. Non-specific ST/T wave changes, no STEMI noted - X-Ray X-Ray #1 X-Ray: chest Interpretation: Interp. by me X-ray Comments: I reviewed official radiology report - Progress/Reassessment Chief Complaint: Dyspnea Progress Note-Subjective: 11/24/18 15:15 patient has no evidence of pneumonia. Does have apparent CHF exacerbation as etiology of his symptoms. When he ambulates he becomes very winded and needs to stop walking which is not normal for him. I gave him lasix and ASA. His troponin will need to be trended to ensure it does not rise significantly. No chest pain at this time. No suggestion of ACS or STEMI. D/W Dr Pérez who will place in observation, patient agreeable. Departure Clinical Impression: SOB (shortness of breath), CHF exacerbation, Elevated troponin - Departure Disposition: Still a patient Condition: Stable Referrals: Frank Pérez MD [Primary Care Provider] -
[2018-11-24 14:14] LABS: Hematocrit 34.6 % (42.0-52.0); Hemoglobin 11.6 gm/dL (13.5-18.0); Mean Cell Volume 95.3 fl (78-100); Mean Corpuscular Hgb Conc 33.5 g/dl (32-36); Mean Platelet Volume 9.5 fl (8-11.3); Neutrophil # 4.9 K/mm3 (1.3-6.0); Neutrophil % 69.5 % (42-75.0); Platelet Count 137 K/mm3 (150-450); Red Blood Count 3.63 M/mm3 (4.7-6.0); Red Cell Distribution Width 16.5 % (11.5-14.0)
[2018-11-24 14:19] LABS: Prothrombin Time (Patient) 23.5 Seconds (9.1-10.7)
[2018-11-24 14:20] LABS: INR 2.46 INR (0.92-1.08)
[2018-11-24 14:31] LABS: Albumin * 3.6 gm/dl (3.4-5.0); Anion Gap 14.2 mmol/L (6.8-13.8); BUN/Creatinine Ratio 23.8 (9.0-21.6); Ca. Corrected For Albumin 9.4 mg/dL (8.4-10.2); Calcium * 9.4 mg/dL (7.9-10.9); Carbon Dioxide 28.4 mmol/L (24-32.6); Potassium 3.6 mmol/L (3.4-4.6); Total Protein 7.1 gm/dL (6.2-8.2)
[2018-11-24 14:33] LABS: Troponin I 0.133 ng/mL (0.00-0.10)
[2018-11-24] MEDS ORDERED: ASPIRIN 325 MG TABLET.DR PO ONE (14:46)
[2018-11-24] MEDS ORDERED: FUROSEMIDE 10 MG/ML VIAL IV ONE ×4 (14:56→21:32)
[2018-11-24 16:17] LABS: Urine Bilirubin Negative (NEGATIVE); Urine Blood Negative /ul (NEGATIVE); Urine Ketone Negative (NEGATIVE); Urine Nitrite Negative (NEGATIVE); Urine Protein Negative (NEGATIVE); Urine Urobilinogen Normal (NORMAL)
[2018-11-24 16:23] LABS: Urine Appearance Clear (CLEAR); Urine Bacteria None Seen; Urine Color Yellow; Urine RBC None Seen /hpf (0-5); Urine WBC None Seen /hpf (0-5)
--- NOTE | 2018-11-24 17:48 | HP ---
Chief Complaint - Chief Complaint Date of Service: 11/24/18 Time of Service: 17:13 Chief Complaint: shortness of breath History of Present Illness: James Montgomery is an 88-year-old white male with past medical history of coronary artery disease status post CABG, hypertension, chronic atrial fibrillation, chronic renal failure, who was admitted on 11/24/2018 because of increasing shortness of breath. 5 days prior to admission the patient starting having the cold symptoms and started coughing. It was mostly nonproductive. The also noticed some increased swelling of his legs and patient became more short of breath especially with exertion. He denied any chest pains, fever, chills, joint pains. He then went to the emergency room where he found to be tachypneic. His oxygen saturation was 97% on room air. His BNP was 5266 with a BUN/creatinine of 43 and 1.81. His WBC was within normal limits with a hemoglobin of 11.6, MCV of 95. His lactic acid was normal and his troponin was slightly elevated at 0.133. I do not have the EKG with me but his EKG was read by the ED physician as atrial fibrillation rate of 72, nonspecific ST-T wave changes, no ST elevation [place]. His chest x-ray showed- IMPRESSION: 1. MILDLY ENLARGED HEART WITH PREVIOUS MEDIAN STERNOTOMY. 2. NEW SMALL RIGHT BASAL EFFUSION WITH ASSOCIATED ATELECTASIS. She was given IV Lasix in the emergency room and admitted for observation. Medical History (Updated 11/24/18 @ 18:04 by Frank Pérez MD) Stage III chronic kidney disease (Chronic) Hyperuricemia (Chronic) Metatarsalgia (Acute) Kidney stone (Acute) Atrial fibrillation CHF (congestive heart failure) Hypertension Kidney disease Surgical History: Surgical History (Updated 11/24/18 @ 17:48 by Frank Pérez MD) Rotator cuff arthropathy of both shoulders (Acute) S/P triple vessel bypass (Acute) H/O hernia repair H/O lithotripsy Hx of heart bypass surgery Family History: Family History (Last Reviewed 11/24/18 @ 15:57 by Lexa Alves RN) Mother Hypertension Father Hypertension Social History: (Last Reviewed 11/24/18 @ 13:58 by Arian Garcia MD) Tobacco: Smoking Status: Former smoker Review Of Systems (GEN) - Review of Systems Generalized/Overall Review: Present: Weakness. Absent: Chills, Fever, Weight gain EENTM: Absent: Blurred Vision Respiratory: Present: Cough, Shortness of Breath, Orthopnea Cardiac: Present: Edema. Absent: Chest Pain, Palpitations Abdominal: Absent: Nausea, Vomiting Genitourinary: Absent: Urgency, Frequency Musculoskeletal: Absent: Joint Pain Neurological: Absent: Headache Skin: Absent: Lesions, Rash Endocrine: Absent: Intolerance to Cold, Intolerance to Heat Misc: All systems neg except as marked Immunizations: IMMUNIZATION HX Immunizations Up to Date Yes History of Influenza Vaccine Yes Hx Pneumococcal Vaccination Yes Allergies/Adverse Reactions: Allergies Allergy/AdvReac Type Severity Reaction Status Date / Time No Known Allergies Allergy Verified 11/24/18 15:57 Home Medications: HOME MEDICATIONS Calcitriol 0.25 mcg PO DAILY 11/03/15 [Last Taken 12/22/17] Losartan Potassium [Cozaar] 12.5 mg PO DAILY 11/03/15 [Last Taken 12/22/17] Nitroglycerin 0.4 mg SL PRN PRN 01/19/17 [Last Taken 12/22/17] simvastatin 10 mg tablet 10 mg PO QPM 11/04/17 [Last Taken 12/22/17] furosemide 40 mg tablet 60 mg PO DAILY #180 tab 01/24/18 [Last Taken Unknown] cholecalciferol (vitamin D3) 2,000 unit capsule 2,000 unit PO DAILY 03/07/18 [Last Taken Unknown] potassium chloride ER 10 mEq tablet,extended release 10 meq PO DAILY #90 tab 05/18/18 [Last Taken Unknown] tamsulosin 0.4 mg capsule 0.4 mg PO DAILY@1800 #90 cap 08/15/18 [Last Taken Unknown] diclofenac 20 mg/gram/actuation (2 %) topical soln metered-dose pump 2 pump TP BID #112 g 09/09/18 [Last Taken Unknown] traMADol HCL [Ultram] 50 mg PO QID PRN #20 tab 09/13/18 [Last Taken Unknown] warfarin 5 mg tablet 5 mg PO DAILY #90 tab 09/13/18 [Last Taken Unknown] allopurinol 100 mg tablet 200 mg PO DAILY #180 tab 10/13/18 [Last Taken Unknown] finasteride 5 mg tablet See Rx Instructions .ROUTE .COMPLEX #30 tablet 10/13/18 [Last Taken Unknown] isosorbide mononitrate ER 30 mg tablet,extended release 24 hr See Rx Instructions .ROUTE .COMPLEX #180 tablet 10/13/18 [Last Taken Unknown] Exam - Exam Vital Signs: Vital Signs - Last Taken Temp 36.4 C 11/24/18 16:03 Pulse 87 11/24/18 16:03 Resp 24 H 11/24/18 16:03 BP 155/75 H 11/24/18 16:03 Pulse Ox 96 11/24/18 16:03 Constitutional: Present: Alert, Oriented x3, Cooperative, Elderly ENT Exam: Present: hard of hearing Eye Exam: bilateral eye: normal inspection, PERRL, EOMI Neck: Present: supple. Absent: lymphadenopathy (R), lymphadenopathy (L) Respiratory: Present: decreased breath sounds, No rales, No wheezing Cardiovascular/Chest: Present: JVD, systolic murmur, irregularly irregular Abdomen: Present: Normal bowel sounds, soft, nontender, nondistended Extremity: Present: no calf tenderness, lower extremity edema Diagnostic Studies: Abnormal Lab Results 11/24/18 11/24/18 11/24/18 Range/Units 14:00 14:00 14:00 RBC 3.63 L (4.7-6.0) M/mm3 Hgb 11.6 L (13.5-18.0) gm/dL Hct 34.6 L (42.0-52.0) % MCH 32.0 H (27-31) pg RDW 16.5 H (11.5-14.0) % Plt Count 137 L (150-450) K/mm3 Lymphocytes % 16.7 L (20-51) % Eosinophils % 3.7 H (0.0-3.0) % Lymphocytes # 1.17 L (1.5-3.5) k/mm3 PT 23.5 H (9.1-10.7) Seconds INR (Anticoag Therapy) 2.46 H (0.92-1.08) INR Anion Gap 14.2 H (6.8-13.8) mmol/L BUN 43 H (6-23) mg/dL Creatinine 1.81 H (0.4-1.4) mg/dL Est GFR (Non-Af Amer) 38 L (60-130) mL/min BUN/Creatinine Ratio 23.8 H (9.0-21.6) ALT 8 L (19-67) U/L Troponin I 0.133 H* (0.00-0.10) ng/mL B-Natriuretic Peptide 5266 H (5-650) pg/mL Laboratory Results WBC 7.0 K/mm3 (4.0-10.5) 11/24/18 14:00 RBC 3.63 M/mm3 (4.7-6.0) L 11/24/18 14:00 Hgb 11.6 gm/dL (13.5-18.0) L 11/24/18 14:00 Hct 34.6 % (42.0-52.0) L 11/24/18 14:00 MCV 95.3 fl (78-100) 11/24/18 14:00 MCH 32.0 pg (27-31) H 11/24/18 14:00 MCHC 33.5 g/dl (32-36) 11/24/18 14:00 RDW 16.5 % (11.5-14.0) H 11/24/18 14:00 Plt Count 137 K/mm3 (150-450) L 11/24/18 14:00 MPV 9.5 fl (8-11.3) 11/24/18 14:00 Immature Gran % (Auto) 0.30 % (0.001-0.429) 11/24/18 14:00 Immature Gran # (Auto) 0.02 K/mm3 (0.000-0.0310) 11/24/18 14:00 69.5 % (42-75.0) 11/24/18 14:00 16.7 % (20-51) L 11/24/18 14:00 8.9 % (0.0-9) 11/24/18 14:00 3.7 % (0.0-3.0) H 11/24/18 14:00 0.9 % (0.0-1.0) 11/24/18 14:00 Nucleated RBC % 0.0 k/mm3 (0-1) 11/24/18 14:00 4.9 K/mm3 (1.3-6.0) 11/24/18 14:00 1.17 k/mm3 (1.5-3.5) L 11/24/18 14:00 0.6 k/mm3 (0.0-1.0) 11/24/18 14:00 0.3 k/mm3 (0.0-0.7) 11/24/18 14:00 Absolute Basophils 0.1 k/mm3 (0.0-0.1) 11/24/18 14:00 PT 23.5 Seconds (9.1-10.7) H 11/24/18 14:00 INR (Anticoag Therapy) 2.46 INR (0.92-1.08) H 11/24/18 14:00 Sodium 139 mmol/L (132-142) 11/24/18 14:00 139 mmol/L (130-142) 11/24/18 14:00 Potassium 3.6 mmol/L (3.4-4.6) 11/24/18 14:00 Chloride 100 mmol/L (97-106) 11/24/18 14:00 Carbon Dioxide 28.4 mmol/L (24-32.6) 11/24/18 14:00 14.2 mmol/L (6.8-13.8) H 11/24/18 14:00 BUN 43 mg/dL (6-23) H 11/24/18 14:00 1.81 mg/dL (0.4-1.4) H 11/24/18 14:00 Est GFR (Non-Af Amer) 38 mL/min (60-130) L 11/24/18 14:00 23.8 (9.0-21.6) H 11/24/18 14:00 110 mg/dL (70-110) 11/24/18 14:00 0.9 mmol/L (0.4-2.0) 11/24/18 14:00 Calcium 9.4 mg/dL (7.9-10.9) 11/24/18 14:00 Calcium Adj for Albumin 9.4 mg/dL (8.4-10.2) 11/24/18 14:00 1.0 mg/dL (0.0-1.1) 11/24/18 14:00 AST 18 U/L (0-48) 11/24/18 14:00 ALT 8 U/L (19-67) L 11/24/18 14:00 138 U/L (50-170) 11/24/18 14:00 0.133 ng/mL (0.00-0.10) H* 11/24/18 14:00 B-Natriuretic Peptide 5266 pg/mL (5-650) H 11/24/18 14:00 7.1 gm/dL (6.2-8.2) 11/24/18 14:00 3.6 gm/dl (3.4-5.0) 11/24/18 14:00 Yellow 11/24/18 16:00 Clear (CLEAR) 11/24/18 16:00 6.0 pH (5.0-7.0) 11/24/18 16:00 Ur Specific [place] 1.010 SP.GR. (1.005-1.030) 11/24/18 16:00 Negative mg/dL (NEGATIVE) 11/24/18 16:00 Negative mg/dL (NEGATIVE) 11/24/18 16:00 Negative mg/dL (NEGATIVE) 11/24/18 16:00 Negative /ul (NEGATIVE) 11/24/18 16:00 Negative (NEGATIVE) 11/24/18 16:00 Negative mg/dl (NEGATIVE) 11/24/18 16:00 Normal EU/dl (NORMAL) 11/24/18 16:00 Ur Leukocyte Esterase Negative /ul (NEGATIVE) 11/24/18 16:00 None seen /hpf (0-5) 11/24/18 16:00 None seen /hpf (0-5) 11/24/18 16:00 Ur Epithelial Cells 0-5 /hpf (0-5) 11/24/18 16:00 None seen (NONE) 11/24/18 16:00 No culture indicated 11/24/18 16:00 Assessment/Plan - Narrative Narrative: We will continue with the patient's current medications and present management. We will continue with IV Lasix diuresis. We will do a follow-up chest x-ray for his pleural effusion. If it continues to build up, will need to do ultrasound- guided thoracentesis for therapeutic as well as diagnostic test. His elevated troponin most likely is due to increased demand ischemia from his acute CHF exacerbation as well from his moderate LVH. Discussed with patient and the who has the power of patent prosecution attorney and they expressed that if the troponin goes to infarct levels they do not want to be transferred and just wants to do medical management. The patient is a DNR. His echocardiogram on 11/04/2018 showed moderate concentric left ventricular hypertrophy, normal ejection fraction, diastolic dysfunction, mild mitral regurgitation, mild tricuspid regurgitation, trace tricuspid regurgitation and pulmonary regurgitation. His new nuclear pharmacologic stress test in 11/2017 showed inferior wall infarct with inferior wall hypokinesis. No evidence of reversible myocardial ischemia. Ejection fraction within normal limits. - Assessment/Plan (1) Acute exacerbation of congestive heart failure Problem: Acute Qualifiers: Heart failure type: diastolic Qualified Code(s): I50.33 - Acute on chronic diastolic (congestive) heart failure (2) Pleural effusion Problem: Acute (3) Elevated troponin Problem: Acute (4) Afib Problem: Chronic Qualifiers: Atrial fibrillation type: chronic Qualified Code(s): I48.2 - Chronic atrial fibrillation (5) HTN (hypertension) Problem: Chronic Qualifiers: (6) Obstructive sleep apnea Problem: Chronic
[2018-11-24] MEDS ORDERED: traMADol HCL 50 MG TABLET PO PRN (18:04)
[2018-11-24] MEDS ORDERED: NITROGLYCERIN 0.4 MG/TAB BTL SL PRN (18:04)
[2018-11-24] MEDS ORDERED: AZITHROMYCIN 250 MG TABLET PO ONE ×2 (18:13→21:15)
[2018-11-25 05:39] LABS: Hematocrit 32.5 % (42.0-52.0); Hemoglobin 10.7 gm/dL (13.5-18.0); Mean Cell Volume 93.4 fl (78-100); Mean Corpuscular Hemoglobin 30.7 pg (27-31); Mean Corpuscular Hgb Conc 32.9 g/dl (32-36); Mean Platelet Volume 10.3 fl (8-11.3); Neutrophil # 3.7 K/mm3 (1.3-6.0); Neutrophil % 64.1 % (42-75.0); Platelet Count 119 K/mm3 (150-450); Red Blood Count 3.48 M/mm3 (4.7-6.0); Red Cell Distribution Width 16.4 % (11.5-14.0); White Blood Count 5.8 K/mm3 (4.0-10.5)
[2018-11-25 05:55] LABS: Anion Gap 13.1 mmol/L (6.8-13.8); BUN/Creatinine Ratio 25.4 (9.0-21.6); Calcium * 9.3 mg/dL (7.9-10.9); Carbon Dioxide 27.4 mmol/L (24-32.6); Estimated Creat Clear 33.2; Potassium 3.5 mmol/L (3.4-4.6)
[2018-11-25] MEDS ORDERED: LOSARTAN POTASSIUM 50 MG TABLET PO SCH (09:00)
[2018-11-25] MEDS ORDERED: FINASTERIDE 5 MG TABLET PO SCH (09:00)
[2018-11-25] MEDS ORDERED: ALLOPURINOL 100 MG TABLET PO SCH (09:00)
[2018-11-25] MEDS ORDERED: FUROSEMIDE 10 MG/ML VIAL IV SCH (09:00)
[2018-11-25] MEDS ORDERED: ISOSORBIDE MONONITRATE 30 MG TAB.SR.24H PO SCH (09:00)
[2018-11-25] MEDS ORDERED: AZITHROMYCIN 250 MG TABLET PO SCH (09:00)
[2018-11-25] MEDS ORDERED: CHOLECALCIFEROL 1,000 UNIT CAPSULE PO SCH (09:00)
[2018-11-25] MEDS ORDERED: ISOSORBIDE MONONITRATE 60 MG TAB.SR.24H PO SCH (09:00)
[2018-11-25] MEDS ORDERED: POTASSIUM CHLORIDE 10 MEQ TABLET.SA PO SCH (09:00)
[2018-11-25] MEDS ORDERED: CALCITRIOL 0.25 MCG CAPSULE PO SCH (09:00)
[2018-11-25] MEDS ORDERED: FUROSEMIDE 40 MG, FUROSEMIDE 20 MG IV SCH ×2 (09:00)
--- NOTE | 2018-11-25 10:23 | DS ---
(1) Acute exacerbation of congestive heart failure Problem: Acute Qualifiers: Heart failure type: diastolic Qualified Code(s): I50.33 - Acute on chronic diastolic (congestive) heart failure (2) Pleural effusion Problem: Acute (3) Elevated troponin Problem: Acute (4) Afib Problem: Chronic Qualifiers: Atrial fibrillation type: chronic Qualified Code(s): I48.2 - Chronic atrial fibrillation (5) HTN (hypertension) Problem: Chronic Qualifiers: (6) Obstructive sleep apnea Problem: Chronic Date of Discharge:: 11/25/18 Description of Stay: James Montgomery is an 88-year-old white male with past medical history of coronary artery disease status post CABG, hypertension, chronic atrial fibrillation, chronic renal failure, who was admitted on 11/24/2018 because of increasing shortness of breath. 5 days prior to admission the patient starting having the cold symptoms and started coughing. It was mostly nonproductive. The also noticed some increased swelling of his legs and patient became more short of breath especially with exertion. He denied any chest pains, fever, chills, joint pains. He then went to the emergency room where he found t o be tachypneic. His oxygen saturation was 97% on room air. His BNP was 5266 with a BUN/creatinine of 43 and 1.81. His WBC was within normal limits with a hemoglobin of 11.6, MCV of 95. His lactic acid was normal and his troponin was slightly elevated at 0.133. I do not have the EKG with me but his EKG was read by the ED physician as atrial fibrillation rate of 72, nonspecific ST-T wave changes, no ST elevation [place]. His chest x-ray showed- IMPRESSION: 1. MILDLY ENLARGED HEART WITH PREVIOUS MEDIAN STERNOTOMY. 2. NEW SMALL RIGHT BASAL EFFUSION WITH ASSOCIATED ATELECTASIS. He was given IV Lasix in the emergency room and admitted for observation. We further diuresed him and he put out about 1.8 L. His repeat toroponin was 0.123 down from 0.133. He says he is feeling better and is not as SOB as yesterday. His Cr also improved to 1.6 from 1.8. His inluenza A and B were negative. I did start him on Azithromycin for possible URI/Acute bronchitis exacerbating his CHF as he has been stable for the last 6 months until his common colds started. We will discharged him today and will follow up in 1 week with me with a BMP/BNP/INR and a repeat CXR for his pleural effusion. . Procedures Performed: none Results and Findings: Lab Pending Results 11/24/18 14:00: WBC 7.0, RBC 3.63 L, Hgb 11.6 L, Hct 34.6 L, MCV 95.3, MCH 32.0 H, MCHC 33.5, RDW 16.5 H, Plt Count 137 L, MPV 9.5, Immature Gran % (Auto) 0.30, Immature Gran # (Auto) 0.02, Neutrophils % 69.5, Lymphocytes % 16.7 L, Monocytes % 8.9, Eosinophils % 3.7 H, Basophils % 0.9, Nucleated RBC % 0.0, Neutrophils # 4.9, Lymphocytes # 1.17 L, Monocytes # 0.6, Eosinophils # 0.3, Absolute Basophils 0.1 11/24/18 14:00: PT 23.5 H, INR (Anticoag Therapy) 2.46 H 11/24/18 14:00: Sodium 139, Plasma Sodium 139, Potassium 3.6, Chloride 100, Carbon Dioxide 28.4, Anion Gap 14.2 H, BUN 43 H, Creatinine 1.81 H, Est GFR (Non-Af Amer) 38 L, BUN/Creatinine Ratio 23.8 H, Random Glucose 110, Calcium 9.4, Calcium Adj for Albumin 9.4, Total Bilirubin 1.0, AST 18, ALT 8 L, Alkaline Phosphatase 138, Troponin I 0.133 H*, B-Natriuretic Peptide 5266 H, Total Protein 7.1, Albumin 3.6 11/24/18 14:00: Lactic Acid, Venous 0.9 11/24/18 16:00: Urine Color Yellow, Urine Appearance Clear, Urine pH 6.0, Ur Specific [place] 1.010, Urine Protein Negative, Urine Glucose (UA) Negative, Urine Ketones Negative, Urine Blood Negative, Urine Nitrate Negative, Urine Bilirubin Negative, Urine Urobilinogen Normal, Ur Leukocyte Esterase Negative, Urine RBC None seen, Urine WBC None seen, Ur Epithelial Cells 0-5, Urine Bacteria None seen, Urine Culture Comments No culture indicated 11/24/18 19:30: Influenza Type A Ag Negative, Influenza Type B Ag Negative 11/25/18 05:25: WBC 5.8, RBC 3.48 L, Hgb 10.7 L, Hct 32.5 L, MCV 93.4, MCH 30.7, MCHC 32.9, RDW 16.4 H, Plt Count 119 L, MPV 10.3, Immature Gran % (Auto) 0.30, Immature Gran # (Auto) 0.02, Neutrophils % 64.1, Lymphocytes % 20.8, Monocytes % 10.7 H, Eosinophils % 3.6 H, Basophils % 0.5, Nucleated RBC % 0.0, Neutrophils # 3.7, Lymphocytes # 1.21 L, Monocytes # 0.6, Eosinophils # 0.2, Absolute Basophils 0.0 11/25/18 05:25: Sodium 139, Plasma Sodium 139, Potassium 3.5, Chloride 102, Carbon Dioxide 27.4, Anion Gap 13.1, BUN 43 H, Creatinine 1.69 H, Est GFR (Non- Af Amer) 41 L, BUN/Creatinine Ratio 25.4 H, Random Glucose 94, Calcium 9.3 11/25/18 05:25: Troponin I 0.125 H* Discharge Location: Home Disposition: Home self-care Condition: Stable Discharge Activity: Activity as tolerated Discharge Diet: Low salt Referrals: Frank Pérez MD [Primary Care Provider] - Additional Patient Instructions (free text): -Please make TCM appointment unless mcc discharge, or if following up with outside provider. Thank you! Kalie @ [phone] or Kaya at [phone]. Follow up with PCP in 1 week with a BMP/BNP, CXR. Prescriptions (Any new or edited meds): Potassium Chloride [K-Tab ER] 20 meq PO DAILY #90 tab Furosemide [Lasix] 80 mg PO DAILY #180 tab Azithromycin [Zithromax] 250 mg PO DAILY 4 Days #4 tab Complete Home Medications List: Complete Home Medication List: Calcitriol 0.25 mcg PO DAILY 11/03/15 Losartan Potassium [Cozaar] 12.5 mg PO DAILY 11/03/15 Nitroglycerin 0.4 mg SL PRN PRN 01/19/17 simvastatin 10 mg tablet 10 mg PO QPM 11/04/17 cholecalciferol (vitamin D3) 2,000 unit capsule 2,000 unit PO DAILY 03/07/18 tamsulosin 0.4 mg capsule 0.4 mg PO DAILY@1800 #90 cap 08/15/18 diclofenac 20 mg/gram/actuation (2 %) topical soln metered-dose pump 2 pump TP BID #112 g 09/09/18 traMADol HCL [Ultram] 50 mg PO QID PRN #20 tab 09/13/18 warfarin 5 mg tablet 5 mg PO DAILY #90 tab 09/13/18 allopurinol 100 mg tablet 200 mg PO DAILY #180 tab 10/13/18 finasteride 5 mg tablet See Rx Instructions .ROUTE .COMPLEX #30 tablet 10/13/18 isosorbide mononitrate ER 30 mg tablet,extended release 24 hr See Rx Instructions .ROUTE .COMPLEX #180 tablet 10/13/18 Azithromycin [Zithromax] 250 mg PO DAILY 4 Days #4 tab 11/25/18 Furosemide [Lasix] 80 mg PO DAILY #180 tab 11/25/18 Potassium Chloride [K-Tab ER] 20 meq PO DAILY #90 tab 11/25/18 Amb Orders for Discharge: Basic Metabolic Panel Time Frame: 1 Week, Location: Laboratory BNP * Time Frame: 1 Week, Location: Laboratory Prothrombin Time Time Frame: 1 Week, Location: Laboratory Chest PA & Lateral * Time Frame: 1 Week, Location: Radiology
[2018-11-25 12:42] VITALS: BP 110/45
[2018-11-25] MEDS ORDERED: WARFARIN SODIUM 5 MG TABLET PO SCH (17:00)
[2018-11-25] MEDS ORDERED: SIMVASTATIN 10 MG TABLET PO SCH (17:00)
[2018-11-25] MEDS ORDERED: TAMSULOSIN HCL 0.4 MG CAP.SR.24H PO SCH (18:00)
== END 2018-11-25 12:38 | disposition home or self-care (01) ==
LOC: ER 13:36 → MS 13:36
PROVIDERS: ADMIT Internal Medicine; ATTEND Internal Medicine
DX: I50.33 Acute on chronic diastolic (congestive) heart failure; I48.2 Chronic atrial fibrillation; G47.33 Obstructive sleep apnea (adult) (pediatric); I10 Essential (primary) hypertension; J90 Pleural effusion, not elsewhere classified; R74.8 Abnormal levels of other serum enzymes
CPT/HCPCS: 36415; 71020; 71046; 80048; 80053; 81001; 83519; 83605; 83880; 84484; 85025; 85610; 87400; 87449; 93005; 96374; 96375; 99285; G0378

== ENCOUNTER 2020-02-16 12:30 | Inpatient (IN) ==
[2020-02-16 13:03] LABS: Hematocrit 33.6 % (42.0-52.0); Hemoglobin 10.9 gm/dL (13.5-18.0); Mean Cell Volume 93.9 fl (78-100); Mean Corpuscular Hemoglobin 30.4 pg (27-31); Mean Corpuscular Hgb Conc 32.4 g/dl (32-36); Mean Platelet Volume 10.5 fl (8-11.3); Neutrophil # 10.8 K/mm3 (1.3-6.0); Platelet Count 173 K/mm3 (150-450); Red Blood Count 3.58 M/mm3 (4.7-6.0); Red Cell Distribution Width 16.5 % (11.5-14.0); White Blood Count 12.8 K/mm3 (4.0-10.5)
--- NOTE | 2020-02-16 13:06 | ERNOTE ---
Dyspnea - Date Date of Service: 02/16/20 - General Presenting Symptoms: other - abdominal pain Time Seen by Provider: 02/16/20 12:32 Source: family Exam Limitations: dementia - Immun/Allergies/Home Medications Immunizations: IMMUNIZATION HX Immunizations Up to Date Yes History of Influenza Vaccine Yes Hx Pneumococcal Vaccination Yes Allergies/Adverse Reactions: Allergies No Known Allergies Allergy (Verified 02/16/20 12:31) Home Medications: HOME MEDICATIONS Calcitriol 0.25 mcg PO DAILY 11/03/15 [Last Taken 12/22/17] Losartan Potassium [Cozaar] 12.5 mg PO DAILY 11/03/15 [Last Taken 12/22/17] simvastatin 10 mg tablet 10 mg PO QPM 11/04/17 [Last Taken 12/22/17] cholecalciferol (vitamin D3) 50 mcg (2,000 unit) capsule 2,000 unit PO DAILY 03/07/18 [Last Taken Unknown] diclofenac sodium 2 pump TP BID #112 g 09/09/18 [Last Taken Unknown] walker See Rx Instructions .ROUTE .MEDSUPPLY #1 ea 04/13/19 [Last Taken Unknown] allopurinol 100 mg tablet 200 mg PO DAILY #180 tab 09/29/19 [Last Taken Unknown] isosorbide mononitrate 30 mg tablet,extended release 24 hr See Rx Instructions .ROUTE .COMPLEX #180 tab 09/29/19 [Last Taken Unknown] finasteride 5 mg tablet See Rx Instructions .ROUTE .COMPLEX #30 unknown measurement unit code: tablet 10/23/19 [Last Taken Unknown] warfarin 5 mg tablet See Rx Instructions .ROUTE .COMPLEX #90 unknown measurement unit code: tablet 10/23/19 [Last Taken Unknown] furosemide 40 mg tablet 60 mg PO DAILY #45 tab 12/28/19 [Last Taken Unknown] potassium chloride 10 mEq tablet,extended release See Rx Instructions .ROUTE .COMPLEX #60 unknown measurement unit code: tablet 01/25/20 [Last Taken Unknown] tamsulosin 0.4 mg capsule See Rx Instructions .ROUTE .COMPLEX #30 unknown measurement unit code: capsule 01/25/20 [Last Taken Unknown] nitroglycerin 0.4 mg sublingual tablet 0.4 mg SL Q5-15M PRN #30 tab 02/12/20 [Last Taken Unknown] - Pain Score Pain Score #1 Pain Score: 6 - History of Present Illness Narrative: The patient is a 89 year old male who presents for abdominal pain and distention which has been present for 2 days. There are no associated symptoms. The patient reports pain to left side of abdomen with palpation, 6/10 on faces scale. There are no alleviating factors. There are no aggravating factors. Previous treatments have included: none. The past medical history includes: CHF, HTN, AFib, CKD and diverticulitis. The social history is positive for former smoker. The patient has had no known ill contacts. present with patient due to history of dementia. Patient began having complaint of LUQ abdominal discomfort and intermittent dyspnea. states today patient exclaimed to her that he needed to see the doctor. Patients last bowel movement was noted by to be on Wednesday. reports poor appetite which is chronic for pain, denies vomiting or diarrhea. Review of Systems - Review of Systems Constitutional: Present: fatigue. Absent: fever, chills EYE: Present: no symptoms reported ENT: Present: no symptoms reported. Absent: ear pain, nasal drainage, sore throat Respiratory: Present: shortness of breath, cough - intermittent Cardiology: Present: edema. Absent: chest pain Gastrointestinal/Abdominal: Present: abdominal pain, eating less, drinking less. Absent: nausea, vomiting, diarrhea Genitourinary: Present: no symptoms reported. Absent: dysuria, decreased urinary output Musculoskeletal: Present: no symptoms reported Skin: Present: no symptoms reported. Absent: rash Medical History (Last Reviewed 02/16/20 @ 12:59 by IASIAH Forbes) Stage III chronic kidney disease (Chronic) Hyperuricemia (Chronic) Metatarsalgia (Acute) Kidney stone (Acute) Atrial fibrillation CHF (congestive heart failure) Hypertension Kidney disease Surgical History: Surgical History (Last Reviewed 02/16/20 @ 12:59 by ISAIAH Forbes) Rotator cuff arthropathy of both shoulders (Acute) S/P triple vessel bypass (Chronic) H/O hernia repair H/O lithotripsy Hx of heart bypass surgery Family History: Family History (Last Reviewed 02/16/20 @ 12:59 by ISAIAH Forbes) Mother Hypertension Father Hypertension Social History: (Last Reviewed 02/16/20 @ 12:59 by ISAIAH Forbes) Tobacco: Smoking Status: Former smoker Physical Exam - Physical Exam General Appearance: Present: wd/wn, alert, moderate distress Head Exam: Present: normal inspection, no evidence of injury Eye Exam: Normal inspection: bilateral, Scleral icterus: bilateral Neck: Present: normal inspection Respiratory: Present: no respiratory distress, normal breath sounds, no accessory muscle use, lungs clear Cardiovascular/Chest: Present: regular rate, rhythm, extra beats, systolic murmur Gastrointestinal/Abdominal: Present: normal bowel sounds, tenderness - LUQ, periumbilical and LLQ, distended, mass - palpable enlargement to periumbilical to LUQ Extremity Exam: Present: extremity edema - 2+ pitting edema LLE, 3+ RLE, right leg > left which states is chronic Neurological Exam: Present: alert, normal mood/affect, no motor/sensory deficits, disoriented to time, disoriented to situation. Absent: disoriented to person, disoriented to place Skin Exam: Present: warm/dry, jaundice - faint yellow coloration to skin Progress - Date and Time Seen: Date and Time: 02/16/20 14:00 Review of patient's chart shows previous trop elevation likely associated with CHF, BNP 48636 which is double previous level. Patient Crea also increased from baseline chronic failure. Will proceed with po contrast CT abd/pelvis due to left abdomen pain with elevated WBC and CRP with history of diverticular disease. 02/16/20 16:10 Patient was unable to void, leger placed with removal of 3 liters dark ryne urine. Will send for COVID test for pending admission for pleural effusion, urinary retention with acute on chronic renal failure and CHF. - Results and Orders Patient's Lab Results:: I have reviewed the patient's lab results. - Vital Signs Patient's Vital Signs:: I have reviewed the patient's vital signs. Vital Signs: Vital Signs 02/16/20 12:30 02/16/20 12:48 Temperature 36.0 C Pulse Rate 77 77 Respiratory Rate 25 H 18 Blood Pressure 124/54 O2 Sat by Pulse Oximetry 100 100 - EKG EKG #1 EKG: atrial fibrillation, nonspecific ST T wave changes EKG read: Reviewed by me - X-Ray X-Ray #1 X-Ray: abdomen Interpretation: Reviewed by me X-ray Comments: IMPRESSION: 1. NONSPECIFIC BOWEL GAS PATTERN. 2. QUESTIONABLE CALCULUS IN THE REGION OF THE LEFT KIDNEY. Electronically signed by Jesus Munoz M.D.. X-Ray #2 X-Ray: chest Interpretation: Reviewed by me X-ray Comments: IMPRESSION: CARDIOMEGALY. BIBASILAR CONSOLIDATION RIGHT WORSE THAN LEFT THAT APPEARS TO BE PLEURAL EFFUSIONS AND ATELECTASIS. UNDERLYING INFILTRATES MUST BE CONSIDERED CLINICALLY. Electronically signed by Arian Yee M.D.. - CT/Ultrasound CT/Ultrasound Narrative: IMPRESSION: MASSIVE DISTENTION OF THE URINARY BLADDER. SIGNIFICANT RECTAL DISTENTION WITH THE RECTUM FILLED WITH STOOL. SEVERE DIVERTICULOSIS. SEVERE ATHEROSCLEROTIC DISEASE. MILD LEFT HYDRONEPHROSIS AND HYDROURETER WHICH MAY BE RELATED TO THE MASS IN THE URINARY BLADDER DISTENTION. RIGHT PLEURAL EFFUSION WITH RIGHT BASILAR ATELECTASIS. Electronically signed by Arian Yee M.D - Progress/Reassessment Chief Complaint: Dyspnea Departure Clinical Impression: Pleural effusion, Acute urinary retention CHF exacerbation Qualifiers: Heart failure type: unspecified Qualified Code(s): I50.9 - Heart failure, unspecified Acute on chronic renal failure Qualifiers: Acute renal failure type: unspecified Chronic kidney disease stage: unspecified stage Qualified Code(s): N17.9 - Acute kidney failure, unspecified; N18.9 - Chronic kidney disease, unspecified - Departure Disposition: Still a patient Condition: Stable
[2020-02-16 13:24] LABS: Albumin * 3.8 gm/dl (3.4-5.0); Anion Gap 15.9 mmol/L (6.8-13.8); BUN/Creatinine Ratio 29.5 (9.0-21.6); Bilirubin, Total 1.4 mg/dL (0.0-1.1); CRP 4.5 mg/dL (0.0-0.9); Ca. Corrected For Albumin 10.3 mg/dL (8.4-10.2); Calcium * 10.5 mg/dL (7.9-10.9); Potassium 3.9 mmol/L (3.4-4.6); Total Protein 7.6 gm/dL (6.2-8.2)
[2020-02-16 13:26] LABS: Troponin I 0.219 ng/mL (0.00-0.10)
[2020-02-16] MEDS ORDERED: DIATRIZOATE MEGLUMINE, SODIUM 30 ML BTL PO ONE (13:56)
[2020-02-16] MEDS ORDERED: FUROSEMIDE 10 MG/ML VIAL IV ONE (13:58)
[2020-02-16 14:42] LABS: Prothrombin Time (Patient) 29.5 Seconds (9.1-10.7)
[2020-02-16 14:46] LABS: INR 3.11 INR (0.92-1.08); Partial Thrombolplastin Time 43.9 Seconds (24-32)
[2020-02-16] MEDS ORDERED: ACETAMINOPHEN 500 MG TABLET PO PRN (19:23)
[2020-02-16] MEDS ORDERED: NITROGLYCERIN 0.4 MG/TAB BTL SL PRN (19:27)
[2020-02-16] MEDS ORDERED: WARFARIN SODIUM 5 MG TABLET PO SCH (19:30)
[2020-02-16] MEDS: CALCITRIOL 0.25 MCG CAPSULE PO SCH (19:51)
[2020-02-16] MEDS: FUROSEMIDE 10 MG/ML VIAL IV SCH (19:52)
--- NOTE | 2020-02-16 19:56 | HP ---
Chief Complaint - Chief Complaint Date of Service: 02/16/20 Time of Service: 19:39 Chief Complaint: Patient has dementia, poor historian. History of Present Illness: 89-year-old male with past medical history of CHF, chronic kidney di sease stage IV, gout, atrial fibrillation, CAD, BPH, status post TURP, and dementia was evaluated in the ER after being brought in by EMS for worsening abdominal pain and distention. Patient was accompanied by his who reports that over the past few days the patient has complain of abdominal pain and has had constipation. This morning he reported increase in his pain so she became alarmed and decided to take him to the ER. Once in the ER patient had a full work-up that revealed worsening of his renal function, and elevated BNP, and a mildly elevated troponin which is not new for the patient. There are no concerning findings on his EKG. This patient takes daily Lasix and other cardiac related medications in the denies him missing any doses. The patient has dementia so he is unable to reliably describe his symptoms but he does not show any evidence of chest pain only mild dyspnea. His chest x-ray revealed bilateral pleural effusion and possible infiltrate however fever or chills have not been reported. His labs however does show mild elevation of his WBCs and positive lactic acid so as a precaution we will cover him with antibiotics. After reviewing the patient's records it was seen that he has had a repeatedly elevated troponin levels most likely related to his advanced kidney disease and feeling heart, therefore an ACS is unlikely. As a precaution we will keep the patient on telemetry monitoring and watch him closely. Medical History (Last Reviewed 02/16/20 @ 12:59 by ISAIAH Forbes) Stage III chronic kidney disease (Chronic) Hyperuricemia (Chronic) Metatarsalgia (Acute) Kidney stone (Acute) Atrial fibrillation CHF (congestive heart failure) Hypertension Kidney disease Surgical History: Surgical History (Last Reviewed 02/16/20 @ 12:59 by ISAIAH Forbes) Rotator cuff arthropathy of both shoulders (Acute) S/P triple vessel bypass (Chronic) H/O hernia repair H/O lithotripsy Hx of heart bypass surgery Family History: Family History (Last Reviewed 02/16/20 @ 12:59 by ISAIAH Forbes) Mother Hypertension Father Hypertension Social History: (Last Reviewed 02/16/20 @ 12:59 by ISAIAH Forbes) Tobacco: Smoking Status: Former smoker Peds Patient Hx - Developmental: No Pertinent Hx Peds Patient Hx - Medical: No Pertinent Hx Peds Patient Hx - Cardiac/Respiratory: No Pertinent Hx Peds Patient Hx - Surgical: No Surgical History Patient History - Cancer: No Hx of Cancer Review Of Systems (GEN) - Review of Systems Generalized/Overall Review: Present: No Symptoms Reported EENTM: Present: No Symptoms Reported Respiratory: Present: Shortness of Breath Cardiac: Present: Edema - Bilateral pedal edema Abdominal: Present: Abdominal Pain, Constipation, Other - Abdominal distention and poor appetite Genitourinary: Present: Retention Musculoskeletal: Present: No Symptoms Reported Neurological: Present: Pre-existing Deficit Skin: Present: Bruising Endocrine: Present: No Symptoms Reported Immunizations: IMMUNIZATION HX Immunizations Up to Date Yes History of Influenza Vaccine Yes Hx Pneumococcal Vaccination Yes Allergies/Adverse Reactions: Allergies Allergy/AdvReac Type Severity Reaction Status Date / Time No Known Allergies Allergy Verified 02/16/20 12:31 Home Medications: HOME MEDICATIONS Calcitriol 0.25 mcg PO DAILY 11/03/15 [Last Taken 12/22/17] Losartan Potassium [Cozaar] 12.5 mg PO DAILY 11/03/15 [Last Taken 12/22/17] simvastatin 10 mg tablet 10 mg PO QPM 11/04/17 [Last Taken 12/22/17] cholecalciferol (vitamin D3) 50 mcg (2,000 unit) capsule 2,000 unit PO DAILY 03/07/18 [Last Taken Unknown] diclofenac sodium 2 pump TP BID #112 g 09/09/18 [Last Taken Unknown] walker See Rx Instructions .ROUTE .MEDSUPPLY #1 ea 04/13/19 [Last Taken Unknown] allopurinol 100 mg tablet 200 mg PO DAILY #180 tab 09/29/19 [Last Taken Unknown] isosorbide mononitrate 30 mg tablet,extended release 24 hr See Rx Instructions .ROUTE .COMPLEX #180 tab 09/29/19 [Last Taken Unknown] finasteride 5 mg tablet See Rx Instructions .ROUTE .COMPLEX #30 unknown measurement unit code: tablet 10/23/19 [Last Taken Unknown] warfarin 5 mg tablet See Rx Instructions .ROUTE .COMPLEX #90 unknown measurement unit code: tablet 10/23/19 [Last Taken Unknown] furosemide 40 mg tablet 60 mg PO DAILY #45 tab 12/28/19 [Last Taken Unknown] potassium chloride 10 mEq tablet,extended release See Rx Instructions .ROUTE .COMPLEX #60 unknown measurement unit code: tablet 01/25/20 [Last Taken Unknown] tamsulosin 0.4 mg capsule See Rx Instructions .ROUTE .COMPLEX #30 unknown measurement unit code: capsule 01/25/20 [Last Taken Unknown] nitroglycerin 0.4 mg sublingual tablet 0.4 mg SL Q5-15M PRN #30 tab 02/12/20 [Last Taken Unknown] Exam - Exam Vital Signs: Vital Signs - Last Taken Temp 36.3 C 02/16/20 19:11 Pulse 74 02/16/20 19:11 Resp 18 02/16/20 19:11 BP 110/38 02/16/20 19:11 Pulse Ox 95 02/16/20 19:11 Constitutional: Present: Alert, Cooperative, Well developed, No distress, Elderly ENT Exam: Present: normal ENT inspection, hard of hearing Eye Exam: bilateral eye: normal inspection Neck: Present: non-tender, full range of motion, supple, normal inspection, trachea midline Back Exam: Present: normal inspection, no CVA tenderness, no vertebral tenderness Breasts: Present: Exam deferred, Nontender Respiratory: Present: chest non-tender, no respiratory distress, no accessory muscle use, crackles Cardiovascular/Chest: Present: no chest tenderness, no gallop, no JVD, no mur mur, no rub, irregularly irregular, edema - Bilateral 3 + pedal edema Peripheral Pulses: carotid (R): 3+, carotid (L): 3+, dorsalis-pedis (R): 2+, dorsalis-pedis (L): 2+ Abdomen: Present: Normal bowel sounds, soft, nontender, nondistended, no rebound tenderness, no hepatospenomegaly, no masses /Rectal: Present: Other - Roe catheter in place Extremity: Present: normal range of motion, non-tender, no calf tenderness, pedal edema - Bilateral 3+ pedal edema, swelling Skin Exam: Present: other - Senile purpura on upper and lower extremity with multiple ecchymoses Lymphatic: Present: no adenopathy Neurologic: Present: no motor/sensory deficits, alert, disoriented x 3 Appearance: Present: impaired insight, impaired recent memory, impaired remote memory Eye contact: Present: belligerent Thoughts: Present: incoherent Diagnostic Studies: Abnormal Lab Results 02/16/20 02/16/20 02/16/20 Range/Units 12:56 12:56 12:56 WBC 12.8 H (4.0-10.5) K/mm3 RBC 3.58 L (4.7-6.0) M/mm3 Hgb 10.9 L (13.5-18.0) gm/dL Hct 33.6 L (42.0-52.0) % RDW 16.5 H (11.5-14.0) % Immature Gran % (Auto) 0.50 H (0.001-0.429) % Immature Gran # (Auto) 0.06 H (0.000-0.0310) K/mm3 Neutrophils % 84.0 H (42-75.0) % Lymphocytes % 7.1 L (20-51) % Neutrophils # 10.8 H (1.3-6.0) K/mm3 Lymphocytes # 0.91 L (1.5-3.5) k/mm3 PT (9.1-10.7) Seconds INR (Anticoag Therapy) (0.92-1.08) INR PTT (Laron) (24-32) Seconds Carbon Dioxide 21.0 L (24-32.6) mmol/L Anion Gap 15.9 H (6.8-13.8) mmol/L BUN 79 H (6-23) mg/dL Creatinine 2.68 H D (0.4-1.4) mg/dL Est GFR (Non-Af Amer) 24 L D (60-130) mL/min BUN/Creatinine Ratio 29.5 H (9.0-21.6) Random Glucose 133 H (70-110) mg/dL Lactic Acid, Venous 2.8 H* (0.4-2.0) mmol/L Calcium Adj for Albumin 10.3 H (8.4-10.2) mg/dL Total Bilirubin 1.4 H (0.0-1.1) mg/dL ALT 15 L (19-67) U/L Troponin I 0.219 H* (0.00-0.10) ng/mL C-Reactive Prot, Quant 4.5 H (0.0-0.9) mg/dL B-Natriuretic Peptide 86491 H (5-650) pg/mL 02/16/20 Range/Units 12:56 WBC (4.0-10.5) K/mm3 RBC (4.7-6.0) M/mm3 Hgb (13.5-18.0) gm/dL Hct (42.0-52.0) % RDW (11.5-14.0) % Immature Gran % (Auto) (0.001-0.429) % Immature Gran # (Auto) (0.000-0.0310) K/mm3 Neutrophils % (42-75.0) % Lymphocytes % (20-51) % Neutrophils # (1.3-6.0) K/mm3 Lymphocytes # (1.5-3.5) k/mm3 PT 29.5 H (9.1-10.7) Seconds INR (Anticoag Therapy) 3.11 H (0.92-1.08) INR PTT (Laron) 43.9 H (24-32) Seconds Carbon Dioxide (24-32.6) mmol/L Anion Gap (6.8-13.8) mmol/L BUN (6-23) mg/dL Creatinine (0.4-1.4) mg/dL Est GFR (Non-Af Amer) (60-130) mL/min BUN/Creatinine Ratio (9.0-21.6) Random Glucose (70-110) mg/dL Lactic Acid, Venous (0.4-2.0) mmol/L Calcium Adj for Albumin (8.4-10.2) mg/dL Total Bilirubin (0.0-1.1) mg/dL ALT (19-67) U/L Troponin I (0.00-0.10) ng/mL C-Reactive Prot, Quant (0.0-0.9) mg/dL B-Natriuretic Peptide (5-650) pg/mL Laboratory Results WBC 12.8 K/mm3 (4.0-10.5) H 02/16/20 12:56 RBC 3.58 M/mm3 (4.7-6.0) L 02/16/20 12:56 Hgb 10.9 gm/dL (13.5-18.0) L 02/16/20 12:56 Hct 33.6 % (42.0-52.0) L 02/16/20 12:56 MCV 93.9 fl (78-100) 02/16/20 12:56 MCH 30.4 pg (27-31) 02/16/20 12:56 MCHC 32.4 g/dl (32-36) 02/16/20 12:56 RDW 16.5 % (11.5-14.0) H 02/16/20 12:56 Plt Count 173 K/mm3 (150-450) 02/16/20 12:56 MPV 10.5 fl (8-11.3) 02/16/20 12:56 Immature Gran % (Auto) 0.50 % (0.001-0.429) H 02/16/20 12:56 Immature Gran # (Auto) 0.06 K/mm3 (0.000-0.0310) H 02/16/20 12:56 Neutrophils % 84.0 % (42-75.0) H 02/16/20 12:56 Lymphocytes % 7.1 % (20-51) L 02/16/20 12:56 Monocytes % 7.7 % (0.0-9) 02/16/20 12:56 Eosinophils % 0.5 % (0.0-3.0) 02/16/20 12:56 Basophils % 0.2 % (0.0-1.0) 02/16/20 12:56 Nucleated RBC % 0.0 k/mm3 (0-1) 02/16/20 12:56 Neutrophils # 10.8 K/mm3 (1.3-6.0) H 02/16/20 12:56 Lymphocytes # 0.91 k/mm3 (1.5-3.5) L 02/16/20 12:56 Monocytes # 1.0 k/mm3 (0.0-1.0) 02/16/20 12:56 Eosinophils # 0.1 k/mm3 (0.0-0.7) 02/16/20 12:56 Absolute Basophils 0.0 k/mm3 (0.0-0.1) 02/16/20 12:56 PT 29.5 Seconds (9.1-10.7) H 02/16/20 12:56 INR (Anticoag Therapy) 3.11 INR (0.92-1.08) H 02/16/20 12:56 PTT (Laron) 43.9 Seconds (24-32) H 02/16/20 12:56 Sodium 135 mmol/L (132-142) 02/16/20 12:56 Plasma Sodium 136 mmol/L (130-142) 02/16/20 12:56 Potassium 3.9 mmol/L (3.4-4.6) 02/16/20 12:56 Chloride 102 mmol/L (97-106) 02/16/20 12:56 Carbon Dioxide 21.0 mmol/L (24-32.6) L 02/16/20 12:56 Anion Gap 15.9 mmol/L (6.8-13.8) H 02/16/20 12:56 BUN 79 mg/dL (6-23) H 02/16/20 12:56 Creatinine 2.68 mg/dL (0.4-1.4) H D 02/16/20 12:56 Est GFR (Non-Af Amer) 24 mL/min (60-130) L D 02/16/20 12:56 BUN/Creatinine Ratio 29.5 (9.0-21.6) H 02/16/20 12:56 Random Glucose 133 mg/dL (70-110) H 02/16/20 12:56 Lactic Acid, Venous 1.2 mmol/L (0.4-2.0) 02/16/20 16:08 Calcium 10.5 mg/dL (7.9-10.9) 02/16/20 12:56 Calcium Adj for Albumin 10.3 mg/dL (8.4-10.2) H 02/16/20 12:56 Total Bilirubin 1.4 mg/dL (0.0-1.1) H 02/16/20 12:56 AST 18 U/L (0-48) 02/16/20 12:56 ALT 15 U/L (19-67) L 02/16/20 12:56 Alkaline Phosphatase 110 U/L (50-170) 02/16/20 12:56 Troponin I 0.219 ng/mL (0.00-0.10) H* 02/16/20 12:56 C-Reactive Prot, Quant 4.5 mg/dL (0.0-0.9) H 02/16/20 12:56 B-Natriuretic Peptide 46394 pg/mL (5-650) H 02/16/20 12:56 Total Protein 7.6 gm/dL (6.2-8.2) 02/16/20 12:56 Albumin 3.8 gm/dl (3.4-5.0) 02/16/20 12:56 Lipase 119 U/L (73-393) 02/16/20 12:56 SARS-CoV-2 (PCR) Not detected (NotDetected) 02/16/20 16:08 Assessment/Plan - Narrative Narrative: Patient was evaluated medical chart was reviewed and decision to admit to [facility] for observation and treatment of decompensated CHF, SALLY on CKD, suspected pneumonia, and bilateral pleural effusion was made. Patient is a poor historian due to his dementia and he is unaccompanied but from what I was able to gather she reports that he had abdominal pain however currently he appears to be comfortable and denies any abdominal tenderness to deep palpation. He denies any chest pain or continued shortness of breath. Checks x-ray revealed bilateral pleural effusions and possible infiltrates so we will cover him with IV antibiotics during the hospitalization in addition to treatment for CHF which consist of multiple doses of diuretics and his routine cardiac medications. Patient is currently on Coumadin so we will conduct daily INRs for proper management of the medication. The patient's GFR is below his baseline so careful diuresis is important in order to avoid worsening of his renal function. Follow-up labs have been added for tomorrow morning. - Assessment/Plan (1) Urinary retention Problem: Acute (2) Afib Problem: Chronic Qualifiers: (3) HTN (hypertension) Problem: Chronic Qualifiers: (4) BPH (benign prostatic hypertrophy) with urinary retention Problem: Acute (5) Pneumonia Problem: Acute Qualifiers: (6) CHF exacerbation Problem: Acute Qualifiers: Heart failure type: unspecified Qualified Code(s): I50.9 - Heart failure, unspecified (7) Dyspnea Problem: Resolved (8) Elevated troponin Problem: Acute (9) Generalized weakness Problem: Acute (10) CAD (coronary artery disease) Problem: Chronic Qualifiers: (11) CHF (congestive heart failure) Problem: Chronic Qualifiers: (12) Acute on chronic renal failure Problem: Acute Qualifiers: Acute renal failure type: unspecified Chronic kidney disease stage: unspecified stage Qualified Code(s): N17.9 - Acute kidney failure, unspecified; N18.9 - Chronic kidney disease, unspecified (13) Acute urinary retention Problem: Acute (14) Anemia Problem: Acute Qualifiers:
[2020-02-16] MEDS: PANTOPRAZOLE SODIUM 20 MG TABLET.DR PO SCH (21:32)
[2020-02-17 05:22] LABS: Hemoglobin 9.1 gm/dL (13.5-18.0); Mean Cell Volume 93.3 fl (78-100); Mean Corpuscular Hemoglobin 30.3 pg (27-31); Mean Corpuscular Hgb Conc 32.5 g/dl (32-36); Mean Platelet Volume 11.4 fl (8-11.3); Neutrophil # 6.9 K/mm3 (1.3-6.0); Neutrophil % 77.8 % (42-75.0); Platelet Count 144 K/mm3 (150-450); Red Cell Distribution Width 16.4 % (11.5-14.0); White Blood Count 8.8 K/mm3 (4.0-10.5)
[2020-02-17 05:30] LABS: Prothrombin Time (Patient) 37.4 Seconds (9.1-10.7)
[2020-02-17 05:38] LABS: Anion Gap 14.3 mmol/L (6.8-13.8); BUN/Creatinine Ratio 31.4 (9.0-21.6); Bilirubin, Total 1.1 mg/dL (0.0-1.1); Ca. Corrected For Albumin 9.4 mg/dL (8.4-10.2); Calcium * 8.9 mg/dL (7.9-10.9); Carbon Dioxide 22.9 mmol/L (24-32.6); Potassium 3.2 mmol/L (3.4-4.6); Total Protein 6.2 gm/dL (6.2-8.2)
[2020-02-17 05:45] LABS: INR 3.98 INR (0.92-1.08)
[2020-02-17] MEDS: PANTOPRAZOLE SODIUM 20 MG TABLET.DR PO SCH ×2 (07:00→22:05)
[2020-02-17] MEDS: FUROSEMIDE 10 MG/ML VIAL IV SCH ×2 (08:34→15:01)
[2020-02-17] MEDS ORDERED: ISOSORBIDE MONONITRATE 30 MG TAB.SR.24H PO SCH (09:00)
[2020-02-17] MEDS: CALCITRIOL 0.25 MCG CAPSULE PO SCH (09:40)
[2020-02-17] MEDS: POTASSIUM CHLORIDE 10 MEQ TABLET.SA PO SCH (09:41)
[2020-02-17] MEDS: FINASTERIDE 5 MG TABLET PO SCH (09:41)
[2020-02-17] MEDS: CHOLECALCIFEROL 1,000 UNIT CAPSULE PO SCH (09:42)
[2020-02-17] MEDS: LOSARTAN POTASSIUM 50 MG TABLET PO SCH (09:50)
[2020-02-17] MEDS ORDERED: POTASSIUM CHLORIDE 20 MEQ TABLET.SA PO ONE (10:39)
--- NOTE | 2020-02-17 10:49 | PN ---
Subjective - Date and Time Seen Date: 02/17/20 Time: 10:42 Subjective Narrative: Patient is confused due to dementia. Objective Objective Narrative: 89-year-old male admitted for decompensated CHF, SALLY on CKD, and ple ural effusion was evaluated at bedside this morning was found to be afebrile and in no acute distress. Patient appears more alert this morning but is still confused and disoriented, he thought he was in his home and had to be told that he was in the hospital however given his history of dementia at this is not concerning. He denies abdominal pain and was not distended on exam. Labs this morning shows resolution of his leukocytosis after we started ceftriaxone however his potassium was low, the patient has a history of hypokalemia and in fact takes daily potassium supplements so this is not new for him. Another thing to consider is we have had to administer multiple doses of Lasix during the hospitalization to address his decompensated CHF. On the right side his CHF symptoms are improving. He denies shortness of breath and the crackles heard on auscultation yesterday have improved. Despite the progress, this morning's dose of diuretics had to be held due to hypotension. We will continue to monitor his vitals and evaluate his necessity for additional doses of diuretics. - Review of Systems Generalized/Overall Review: Reports: No Symptoms Reported EENTM: Reports: No Symptoms Reported Respiratory: Reports: No Symptoms Reported Cardiac: Reports: No Symptoms Reported Abdominal: Reports: No Symptoms Reported Genitourinary Symptoms: Reports: No Symptoms Reported Musculoskeletal Complaints: Reports: No Symptoms Reported Neurological: Reports: Pre-existing Deficit Skin: Reports: No Symptoms Reported Endocrine: Reports: No Symptoms Reported - Vitals Vitals: Last Vital Signs Temp 36.4 C 02/17/20 06:00 Pulse 69 02/17/20 09:51 Resp 20 02/17/20 06:00 BP 91/37 02/17/20 09:51 Pulse Ox 95 02/17/20 06:00 - Abnormal Lab Findings Abnormal Lab Findings: Abnormal Lab Results 02/16/20 02/16/20 02/16/20 Range/Units 12:56 12:56 12:56 WBC 12.8 H (4.0-10.5) K/mm3 RBC 3.58 L (4.7-6.0) M/mm3 Hgb 10.9 L (13.5-18.0) gm/dL Hct 33.6 L (42.0-52.0) % RDW 16.5 H (11.5-14.0) % Plt Count (150-450) K/mm3 MPV (8-11.3) fl Immature Gran % (Auto) 0.50 H (0.001-0.429) % Immature Gran # (Auto) 0.06 H (0.000-0.0310) K/mm3 Neutrophils % 84.0 H (42-75.0) % Lymphocytes % 7.1 L (20-51) % Neutrophils # 10.8 H (1.3-6.0) K/mm3 Lymphocytes # 0.91 L (1.5-3.5) k/mm3 PT (9.1-10.7) Seconds INR (Anticoag Therapy) (0.92-1.08) INR PTT (Laron) (24-32) Seconds Potassium (3.4-4.6) mmol/L Carbon Dioxide 21.0 L (24-32.6) mmol/L Anion Gap 15.9 H (6.8-13.8) mmol/L BUN 79 H (6-23) mg/dL Creatinine 2.68 H D (0.4-1.4) mg/dL Est GFR (Non-Af Amer) 24 L D (60-130) mL/min BUN/Creatinine Ratio 29.5 H (9.0-21.6) Random Glucose 133 H (70-110) mg/dL Lactic Acid, Venous 2.8 H* (0.4-2.0) mmol/L Calcium Adj for Albumin 10.3 H (8.4-10.2) mg/dL Total Bilirubin 1.4 H (0.0-1.1) mg/dL ALT 15 L (19-67) U/L Troponin I 0.219 H* (0.00-0.10) ng/mL C-Reactive Prot, Quant 4.5 H (0.0-0.9) mg/dL B-Natriuretic Peptide 97072 H (5-650) pg/mL Albumin (3.4-5.0) gm/dl 02/16/20 02/17/20 02/17/20 Range/Units 12:56 05:10 05:10 WBC (4.0-10.5) K/mm3 RBC 3.00 L (4.7-6.0) M/mm3 Hgb 9.1 L (13.5-18.0) gm/dL Hct 28.0 L (42.0-52.0) % RDW 16.4 H (11.5-14.0) % Plt Count 144 L (150-450) K/mm3 MPV 11.4 H (8-11.3) fl Immature Gran % (Auto) (0.001-0.429) % Immature Gran # (Auto) (0.000-0.0310) K/mm3 Neutrophils % 77.8 H (42-75.0) % Lymphocytes % 12.2 L (20-51) % Neutrophils # 6.9 H (1.3-6.0) K/mm3 Lymphocytes # 1.08 L (1.5-3.5) k/mm3 PT 29.5 H (9.1-10.7) Seconds INR (Anticoag Therapy) 3.11 H (0.92-1.08) INR PTT (Laron) 43.9 H (24-32) Seconds Potassium 3.2 L (3.4-4.6) mmol/L Carbon Dioxide 22.9 L (24-32.6) mmol/L Anion Gap 14.3 H (6.8-13.8) mmol/L BUN 75 H (6-23) mg/dL Creatinine 2.39 H (0.4-1.4) mg/dL Est GFR (Non-Af Amer) 27 L (60-130) mL/min BUN/Creatinine Ratio 31.4 H (9.0-21.6) Random Glucose (70-110) mg/dL Lactic Acid, Venous (0.4-2.0) mmol/L Calcium Adj for Albumin (8.4-10.2) mg/dL Total Bilirubin (0.0-1.1) mg/dL ALT 11 L (19-67) U/L Troponin I (0.00-0.10) ng/mL C-Reactive Prot, Quant (0.0-0.9) mg/dL B-Natriuretic Peptide (5-650) pg/mL Albumin 3.0 L (3.4-5.0) gm/dl 02/17/20 Range/Units 05:10 WBC (4.0-10.5) K/mm3 RBC (4.7-6.0) M/mm3 Hgb (13.5-18.0) gm/dL Hct (42.0-52.0) % RDW (11.5-14.0) % Plt Count (150-450) K/mm3 MPV (8-11.3) fl Immature Gran % (Auto) (0.001-0.429) % Immature Gran # (Auto) (0.000-0.0310) K/mm3 Neutrophils % (42-75.0) % Lymphocytes % (20-51) % Neutrophils # (1.3-6.0) K/mm3 Lymphocytes # (1.5-3.5) k/mm3 PT 37.4 H (9.1-10.7) Seconds INR (Anticoag Therapy) 3.98 H (0.92-1.08) INR PTT (Laron) (24-32) Seconds Potassium (3.4-4.6) mmol/L Carbon Dioxide (24-32.6) mmol/L Anion Gap (6.8-13.8) mmol/L BUN (6-23) mg/dL Creatinine (0.4-1.4) mg/dL Est GFR (Non-Af Amer) (60-130) mL/min BUN/Creatinine Ratio (9.0-21.6) Random Glucose (70-110) mg/dL Lactic Acid, Venous (0.4-2.0) mmol/L Calcium Adj for Albumin (8.4-10.2) mg/dL Total Bilirubin (0.0-1.1) mg/dL ALT (19-67) U/L Troponin I (0.00-0.10) ng/mL C-Reactive Prot, Quant (0.0-0.9) mg/dL B-Natriuretic Peptide (5-650) pg/mL Albumin (3.4-5.0) gm/dl - Exam Constitutional: Present: Alert, Cooperative, Well developed, Well nourished, No distress, Elderly ENT Exam: Present: hard of hearing Neck: Present: non-tender, full range of motion, supple, normal inspection, trachea midline Breasts: Present: Exam deferred, Nontender Respiratory: Present: no respiratory distress, no accessory muscle use, decreased breath sounds, crackles Cardiovascular/Chest: Present: no chest tenderness, no gallop, no JVD, no murmur, irregularly irregular, edema Abdomen: Present: Normal bowel sounds, soft, nontender, nondistended, no rebound tenderness, no hepatospenomegaly, no masses /Rectal: Present: Exam deferred Extremity: Present: non-tender, normal inspection, no calf tenderness, normal capillary refill, pelvis stable, pedal edema - Bilateral pedal edema Skin Exam: Present: normal color, warm/dry, no cyanosis Lymphatic: Present: no adenopathy 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 This morning's labs reveal some improvement of his renal function however he still not at his baseline. We will repeat labs in the morning to reevaluate. - Problems/Diagnosis (1) Urinary retention Problem: Acute (2) Afib Problem: Chronic Qualifiers: Atrial fibrillation type: unspecified chronic Qualified Code(s): I48.20 - Chronic atrial fibrillation, unspecified (3) HTN (hypertension) Problem: Chronic Qualifiers: (4) BPH (benign prostatic hypertrophy) with urinary retention Problem: Acute (5) Pneumonia Problem: Acute Qualifiers: (6) CHF exacerbation Problem: Acute Qualifiers: Heart failure type: unspecified Qualified Code(s): I50.9 - Heart failure, unspecified (7) Dyspnea Problem: Resolved (8) Elevated troponin Problem: Acute (9) Generalized weakness Problem: Acute (10) CAD (coronary artery disease) Problem: Chronic Qualifiers: (11) CHF (congestive heart failure) Problem: Chronic Qualifiers: (12) Acute on chronic renal failure Problem: Acute Qualifiers: Acute renal failure type: unspecified Chronic kidney disease stage: unspecified stage Qualified Code(s): N17.9 - Acute kidney failure, unspecified; N18.9 - Chronic kidney disease, unspecified (13) Acute urinary retention Problem: Acute (14) Anemia Problem: Acute Qualifiers: (15) Electrolyte imbalance Problem: Acute (16) Hypokalemia Problem: Acute
[2020-02-17] MEDS ORDERED: WARFARIN SODIUM 2.5 MG TABLET PO SCH (17:00)
[2020-02-17] MEDS: SIMVASTATIN 10 MG TABLET PO SCH (17:22)
[2020-02-17] MEDS: TAMSULOSIN HCL 0.4 MG CAP.SR.24H PO SCH (19:14)
[2020-02-18] MEDS: FUROSEMIDE 10 MG/ML VIAL IV SCH (02:50)
[2020-02-18] MEDS: PANTOPRAZOLE SODIUM 20 MG TABLET.DR PO SCH ×2 (06:35→21:25)
[2020-02-18 07:19] LABS: Prothrombin Time (Patient) 31.4 Seconds (9.1-10.7)
[2020-02-18 07:21] LABS: INR 3.32 INR (0.92-1.08)
[2020-02-18 07:26] LABS: Albumin * 3.2 gm/dl (3.4-5.0); Anion Gap 12.1 mmol/L (6.8-13.8); BUN/Creatinine Ratio 28.6 (9.0-21.6); Bilirubin, Total 1.1 mg/dL (0.0-1.1); Ca. Corrected For Albumin 9.9 mg/dL (8.4-10.2); Calcium * 9.6 mg/dL (7.9-10.9); Potassium 3.1 mmol/L (3.4-4.6); Total Protein 6.8 gm/dL (6.2-8.2)
[2020-02-18] MEDS: [UNRECOGNIZED DRUG - OTHER] TP SCH ×4 (09:44→21:25)
[2020-02-18] MEDS: DICLOFENAC SODIUM TP SCH ×4 (09:44→21:25)
[2020-02-18] MEDS: CALCITRIOL 0.25 MCG CAPSULE PO SCH (09:46)
[2020-02-18] MEDS: FINASTERIDE 5 MG TABLET PO SCH (09:47)
[2020-02-18] MEDS: POTASSIUM CHLORIDE 10 MEQ TABLET.SA PO SCH (09:47)
[2020-02-18] MEDS: LOSARTAN POTASSIUM 50 MG TABLET PO SCH (09:48)
[2020-02-18] MEDS: CHOLECALCIFEROL 1,000 UNIT CAPSULE PO SCH (09:48)
[2020-02-18] MEDS: ISOSORBIDE MONONITRATE 60 MG TAB.SR.24H PO SCH (09:49)
[2020-02-18] MEDS ORDERED: POTASSIUM CHLORIDE 20 MEQ TABLET.SA PO ONE (10:17)
--- NOTE | 2020-02-18 10:51 | DS ---
(1) Urinary retention Problem: Acute (2) Afib Problem: Chronic Qualifiers: Atrial fibrillation type: unspecified chronic Qualified Code(s): I48.20 - Chronic atrial fibrillation, unspecified (3) HTN (hypertension) Problem: Chronic Qualifiers: (4) BPH (benign prostatic hypertrophy) with urinary retention Problem: Acute (5) Pneumonia Problem: Acute Qualifiers: (6) CHF exacerbation Problem: Resolved Qualifiers: Heart failure type: unspecified Qualified Code(s): I50.9 - Heart failure, unspecified (7) Dyspnea Problem: Resolved (8) Elevated troponin Problem: Acute (9) Generalized weakness Problem: Acute (10) CAD (coronary artery disease) Problem: Chronic Qualifiers: (11) CHF (congestive heart failure) Problem: Chronic Qualifiers: (12) Acute on chronic renal failure Problem: Acute Qualifiers: Acute renal failure type: unspecified Chronic kidney disease stage: unspecified stage Qualified Code(s): N17.9 - Acute kidney failure, unspecified; N18.9 - Chronic kidney disease, unspecified (13) Acute urinary retention Problem: Acute (14) Anemia Problem: Acute Qualifiers: (15) Electrolyte imbalance Problem: Acute (16) Hypokalemia Problem: Acute (17) Urinary retention due to benign prostatic hyperplasia Problem: Acute (18) Dementia Problem: Acute Date of Discharge:: 02/18/20 Hospital Course: 89-year-old male admitted for decompensated CHF, urinary retention, SALLY on CKD was evaluated at bedside this morning was found to be afebrile and in no acute distress. Patient has shown clinical improvement and response to the treatment he has been receiving since admission. His dyspnea has resolved and crackles his pedal edema have improved. Patient had hypotension yesterday morning which has since resolved so he is diuretics were resumed and we are able to diurese him as carefully as needed given his worsening renal function. This morning he presents stable vitals and is resting comfortably so we will attempt to discharge him home. The patient currently has a Roe catheter due to urinary retention that was detected in the ER before admission with Roe catheter initially released ryne-colored urine but the color of the urine has improved and is now pink. He denies any difficulty breathing or chest pain at this moment and appears to be resting well. His potassium was found to be low again this morning most likely due to the diuretics and his history of recurrent hypokalemia, we will order an additional dose of p.o. potassium to be administered. We will also discharge him with a CMP to be done in 3 days and instructions to follow-up with his PCP. 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 Procedures Performed: see notes below - Roe catheter insertion List Procedures: Roe catheter insertion and subsequent removal Results and Findings: Lab Pending Results 02/16/20 12:56: WBC 12.8 H, RBC 3.58 L, Hgb 10.9 L, Hct 33.6 L, MCV 93.9, MCH 30.4, MCHC 32.4, RDW 16.5 H, Plt Count 173, MPV 10.5, Immature Gran % (Auto) 0.50 H, Immature Gran # (Auto) 0.06 H, Neutrophils % 84.0 H, Lymphocytes % 7.1 L, Monocytes % 7.7, Eosinophils % 0.5, Basophils % 0.2, Nucleated RBC % 0.0, Neutrophils # 10.8 H, Lymphocytes # 0.91 L, Monocytes # 1.0, Eosinophils # 0.1, Absolute Basophils 0.0 02/16/20 12:56: Sodium 135, Plasma Sodium 136, Potassium 3.9, Chloride 102, Carbon Dioxide 21.0 L, Anion Gap 15.9 H, BUN 79 H, Creatinine 2.68 H D, Est GFR (Non-Af Amer) 24 L D, BUN/Creatinine Ratio 29.5 H, Random Glucose 133 H, Calcium 10.5, Calcium Adj for Albumin 10.3 H, Total Bilirubin 1.4 H, AST 18, ALT 15 L, Alkaline Phosphatase 110, Troponin I 0.219 H*, C-Reactive Prot, Quant 4.5 H, B- Natriuretic Peptide 01655 H, Total Protein 7.6, Albumin 3.8, Lipase 119 02/16/20 12:56: Lactic Acid, Venous 2.8 H* 02/16/20 12:56: PT 29.5 H, INR (Anticoag Therapy) 3.11 H, PTT (Laron) 43.9 H 02/16/20 16:08: Lactic Acid, Venous 1.2 02/16/20 16:08: SARS-CoV-2 (PCR) Not detected 02/17/20 05:10: WBC 8.8 D, RBC 3.00 L, Hgb 9.1 L, Hct 28.0 L, MCV 93.3, MCH 30.3, MCHC 32.5, RDW 16.4 H, Plt Count 144 L, MPV 11.4 H, Immature Gran % (Auto) 0.30, Immature Gran # (Auto) 0.03, Neutrophils % 77.8 H, Lymphocytes % 12.2 L, Monocytes % 8.7, Eosinophils % 0.8, Basophils % 0.2, Nucleated RBC % 0.0, Neutrophils # 6.9 H, Lymphocytes # 1.08 L, Monocytes # 0.8, Eosinophils # 0.1, Absolute Basophils 0.0 02/17/20 05:10: Sodium 137, Plasma Sodium 137, Potassium 3.2 L, Chloride 103, Carbon Dioxide 22.9 L, Anion Gap 14.3 H, BUN 75 H, Creatinine 2.39 H, Est GFR (Non-Af Amer) 27 L, BUN/Creatinine Ratio 31.4 H, Random Glucose 91 D, Calcium 8.9, Calcium Adj for Albumin 9.4, Total Bilirubin 1.1, AST 17, ALT 11 L, Alkaline Phosphatase 91, Total Protein 6.2, Albumin 3.0 L 02/17/20 05:10: PT 37.4 H, INR (Anticoag Therapy) 3.98 H 02/17/20 14:30: Troponin I 0.296 H* 02/18/20 06:20: PT 31.4 H, INR (Anticoag Therapy) 3.32 H 02/18/20 06:20: Sodium 135, Plasma Sodium 135, Potassium 3.1 L, Chloride 100, Carbon Dioxide 26.0, Anion Gap 12.1, BUN 66 H, Creatinine 2.31 H, Est GFR (Non- Af Amer) 28 L, BUN/Creatinine Ratio 28.6 H, Random Glucose 93, Calcium 9.6, Calcium Adj for Albumin 9.9, Total Bilirubin 1.1, AST 32, ALT 15 L, Alkaline Phosphatase 97, Total Protein 6.8, Albumin 3.2 L Discharge Location: Home Disposition: Home self-care Condition: Stable Face to Face Encounter completed per [facility] Guidelines: No Discharge Activity: Activity as tolerated Discharge Diet: General/regular food Referrals: Frank Pérez MD [Primary Care Provider] - Prescriptions (Any new or edited meds): Warfarin Sodium [Coumadin] 2.5 mg PO SuMoWeThFrSa@1700 #30 tab Transmission Status: Pending to [facility] Complete Home Medications List: Complete Home Medication List: Calcitriol 0.25 mcg PO DAILY 11/03/15 Losartan Potassium [Cozaar] 12.5 mg PO DAILY 11/03/15 simvastatin 10 mg tablet 10 mg PO QPM 11/04/17 walker See Rx Instructions .ROUTE .MEDSUPPLY #1 ea 04/13/19 allopurinol 100 mg tablet 200 mg PO DAILY #180 tab 09/29/19 furosemide 40 mg tablet 60 mg PO DAILY #45 tab 12/28/19 nitroglycerin 0.4 mg sublingual tablet 0.4 mg SL Q5-15M PRN #30 tab 02/12/20 Finasteride [Proscar] 5 mg PO DAILY 02/17/20 Isosorbide Mononitrate [Imdur] 60 mg PO DAILY 02/17/20 Potassium Chloride 20 meq PO DAILY 02/17/20 Tamsulosin HCl 0.4 mg PO QPM 02/17/20 Warfarin Sodium 2.5 mg PO SUTH 02/17/20 Warfarin Sodium 5 mg PO [id number] 02/17/20 Warfarin Sodium [Coumadin] 2.5 mg PO SuMoWeThFrSa@1700 #30 tab 02/18/20
--- NOTE | 2020-02-18 13:26 | PN ---
Subjective - Date and Time Seen Date: 02/18/20 Time: 13:17 Subjective Narrative: Patient is confused due to dementia. Objective Objective Narrative: 89-year-old male admitted for decompensated CHF, SALLY on CKD, and ple ural effusion was evaluated at bedside this morning was found to be afebrile and in no acute distress. Patient appears to be at his baseline, he has disorientation and confusion due to his dementia but clinically he is better. Auscultation of the patient's lungs and his pedal edema have improved. He has been treated with multiple doses of IV diuretics, which he tolerated without any major issues. Labs this morning showed recurrence of his hypokalemia so additional supplementation of potassium was ordered. We will repeat labs in the morning and start discussing discharge planning. - Review of Systems Generalized/Overall Review: Reports: Weakness EENTM: Reports: No Symptoms Reported Respiratory: Reports: No Symptoms Reported Cardiac: Reports: No Symptoms Reported Abdominal: Reports: No Symptoms Reported Genitourinary Symptoms: Reports: No Symptoms Reported Musculoskeletal Complaints: Reports: No Symptoms Reported Neurological: Reports: Pre-existing Deficit Skin: Reports: No Symptoms Reported Endocrine: Reports: No Symptoms Reported - Vitals Vitals: Last Vital Signs Temp 36.7 C 02/18/20 10:06 Pulse 77 02/18/20 10:06 Resp 18 02/18/20 10:06 BP 119/43 02/18/20 10:06 Pulse Ox 100 02/18/20 10:06 - Abnormal Lab Findings Abnormal Lab Findings: Abnormal Lab Results 02/17/20 02/18/20 02/18/20 Range/Units 14:30 06:20 06:20 PT 31.4 H (9.1-10.7) Seconds INR (Anticoag Therapy) 3.32 H (0.92-1.08) INR Potassium 3.1 L (3.4-4.6) mmol/L BUN 66 H (6-23) mg/dL Creatinine 2.31 H (0.4-1.4) mg/dL Est GFR (Non-Af Amer) 28 L (60-130) mL/min BUN/Creatinine Ratio 28.6 H (9.0-21.6) ALT 15 L (19-67) U/L Troponin I 0.296 H* (0.00-0.10) ng/mL Albumin 3.2 L (3.4-5.0) gm/dl - Exam Constitutional: Present: Alert, Well developed, Well nourished, No distress, Elderly ENT Exam: Present: normal ENT inspection, hearing grossly normal, pharynx normal, TMs normal Neck: Present: non-tender, full range of motion, supple, normal inspection, trachea midline Breasts: Present: Exam deferred, Nontender Respiratory: Present: chest non-tender, lungs clear, normal breath sounds, no respiratory distress, no accessory muscle use Cardiovascular/Chest: Present: normal peripheral pulses, regular rate, rhythm, no chest tenderness, no gallop, no JVD, no murmur, no rub, edema - 1+ pedal edema of right lower extremity Abdomen: Present: Normal bowel sounds, soft, nontender, nondistended, no rebound tenderness, no hepatospenomegaly, no masses /Rectal: Present: Exam deferred Extremity: Present: normal range of motion, non-tender, no calf tenderness, pedal edema Skin Exam: Present: normal color, warm/dry, no cyanosis Lymphatic: Present: no adenopathy Neurologic: Present: no motor/sensory deficits, alert, disoriented x 3 Appearance: Present: impaired recent memory, impaired remote memory Eye contact: Present: cooperative, belligerent Thoughts: Present: other Cauti Physician Documentation - Urinary Catheter Management 2-way Urethral Urethral Indwelling: No Date of Insertion: 02/16/20 Time of Insertion: 16:04 Assessment/Plan Plan Narrative: Orders to remove Roe catheter has been placed in order to reevaluate the patient's urinary function. His reports that he is unable to ambulate with his walker and maintain his balance which is new for him so she is concerned of his high fall risk. She is requesting to discuss discharge planning with the case assistant tomorrow morning. It was explained to the patient's that with progressive dementia it is common for issues with balance and ambulation to eventually develop and that her concern is valid because the patient is a high fall risk. Therefore since it is only the 2 of them at home it is not safe to discharge patient until proper discharge planning has taken place. We will work on this tomorrow morning with the case assistant. In the meantime we will continue the current treatment and reevaluate him in the morning. - Problems/Diagnosis (1) Urinary retention Problem: Acute (2) Afib Problem: Chronic Qualifiers: Atrial fibrillation type: unspecified chronic Qualified Code(s): I48.20 - Chronic atrial fibrillation, unspecified (3) HTN (hypertension) Problem: Chronic Qualifiers: (4) BPH (benign prostatic hypertrophy) with urinary retention Problem: Chronic (5) Pneumonia Problem: Acute Qualifiers: (6) CHF exacerbation Problem: Resolved Qualifiers: Heart failure type: unspecified Qualified Code(s): I50.9 - Heart failure, unspecified (7) Dyspnea Problem: Resolved (8) Elevated troponin Problem: Acute (9) Generalized weakness Problem: Acute (10) CAD (coronary artery disease) Problem: Chronic Qualifiers: (11) CHF (congestive heart failure) Problem: Chronic Qualifiers: (12) Acute on chronic renal failure Problem: Acute Qualifiers: Acute renal failure type: unspecified Chronic kidney disease stage: unspecified stage Qualified Code(s): N17.9 - Acute kidney failure, unspecified; N18.9 - Chronic kidney disease, unspecified (13) Acute urinary retention Problem: Acute (14) Anemia Problem: Acute Qualifiers: (15) Electrolyte imbalance Problem: Acute (16) Hypokalemia Problem: Acute (17) Urinary retention due to benign prostatic hyperplasia Problem: Acute (18) Dementia Problem: Acute
[2020-02-18] MEDS: SIMVASTATIN 10 MG TABLET PO SCH (17:09)
[2020-02-18] MEDS: TAMSULOSIN HCL 0.4 MG CAP.SR.24H PO SCH (18:27)
[2020-02-19 06:21] LABS: Prothrombin Time (Patient) 26.1 Seconds (9.1-10.7)
[2020-02-19 06:27] LABS: Albumin * 2.9 gm/dl (3.4-5.0); Anion Gap 12.5 mmol/L (6.8-13.8); BUN/Creatinine Ratio 27.1 (9.0-21.6); Bilirubin, Total 0.8 mg/dL (0.0-1.1); Ca. Corrected For Albumin 9.4 mg/dL (8.4-10.2); Calcium * 8.8 mg/dL (7.9-10.9); Carbon Dioxide 25.2 mmol/L (24-32.6); Potassium 3.7 mmol/L (3.4-4.6); Total Protein 6.2 gm/dL (6.2-8.2)
[2020-02-19 06:33] LABS: INR 2.74 INR (0.92-1.08)
[2020-02-19] MEDS: PANTOPRAZOLE SODIUM 20 MG TABLET.DR PO SCH (07:43)
[2020-02-19] MEDS ORDERED: FUROSEMIDE 20 MG TABLET PO SCH (09:00)
[2020-02-19] MEDS: CHOLECALCIFEROL 1,000 UNIT CAPSULE PO SCH (10:03)
[2020-02-19] MEDS: FINASTERIDE 5 MG TABLET PO SCH (10:03)
[2020-02-19] MEDS: LOSARTAN POTASSIUM 50 MG TABLET PO SCH (10:03)
[2020-02-19] MEDS: CALCITRIOL 0.25 MCG CAPSULE PO SCH (10:04)
[2020-02-19] MEDS: POTASSIUM CHLORIDE 10 MEQ TABLET.SA PO SCH ×2 (10:06→10:13)
[2020-02-19] MEDS: ISOSORBIDE MONONITRATE 60 MG TAB.SR.24H PO SCH (10:06)
--- NOTE | 2020-02-19 10:14 | DS ---
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 (5) Pneumonia Problem: Suspected Qualifiers: (6) CHF exacerbation Problem: Resolved Qualifiers: Heart failure type: unspecified Qualified Code(s): I50.9 - Heart failure, unspecified (7) Dyspnea Problem: Resolved (8) Elevated troponin Problem: Acute (9) Generalized weakness Problem: Acute (10) CAD (coronary artery disease) Problem: Chronic Qualifiers: (11) CHF (congestive heart failure) Problem: Chronic Qualifiers: (12) Acute on chronic renal failure Problem: Acute Qualifiers: Acute renal failure type: unspecified Chronic kidney disease stage: unspecified stage Qualified Code(s): N17.9 - Acute kidney failure, unspecified; N18.9 - Chronic kidney disease, unspecified (13) Acute urinary retention Problem: Acute (14) Anemia Problem: Acute Qualifiers: (15) Electrolyte imbalance Problem: Acute (16) Hypokalemia Problem: Acute (17) Urinary retention due to benign prostatic hyperplasia Problem: Acute (18) Dementia Problem: Acute Date of Discharge:: 02/19/20 Hospital Course: 89-year-old male admitted for decompensated CHF, urinary retention, SALLY on CKD was evaluated at bedside this morning was found to be afebrile and in no acute distress. Yesterday's discharge had to be canceled due to concerns from the patient that it was not safe for him to go home because the patient is extremely deconditioned and not ambulating with his walker like he used to. They alone at home and it is difficult for her to care for him when he is not ambulating. Patient had mild hypokalemia yesterday so he was administered supplemental potassium, labs this morning revealed resolution of the hypokalemia but now he has mild hyponatremia however this is not concerning at the moment. We will just send him home with orders to repeat a CMP in 3 days. The requested that the patient be kept for an additional day for evaluation by PT and a session of physical therapy to resume baseline ambulation. In the meantime the patient's blood pressure has maintained and his original symptoms of decompensated CHF have improved. 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 Because Mr. Low is confined to the home due to advanced dementia and difficulty with balance and ambulating home health services will be needed. He has a need for intermediate for management of his medications and for monitoring of vitals. The patient will also need physical therapy for physical deconditioning as well as issues with balance and ambulating. The need for home health care skilled services is directly related to the time spent [id number] with the patient. Procedures Performed: none Results and Findings: Lab Pending Results 02/16/20 12:56: WBC 12.8 H, RBC 3.58 L, Hgb 10.9 L, Hct 33.6 L, MCV 93.9, MCH 30.4, MCHC 32.4, RDW 16.5 H, Plt Count 173, MPV 10.5, Immature Gran % (Auto) 0.50 H, Immature Gran # (Auto) 0.06 H, Neutrophils % 84.0 H, Lymphocytes % 7.1 L, Monocytes % 7.7, Eosinophils % 0.5, Basophils % 0.2, Nucleated RBC % 0.0, Neutrophils # 10.8 H, Lymphocytes # 0.91 L, Monocytes # 1.0, Eosinophils # 0.1, Absolute Basophils 0.0 02/16/20 12:56: Sodium 135, Plasma Sodium 136, Potassium 3.9, Chloride 102, Carbon Dioxide 21.0 L, Anion Gap 15.9 H, BUN 79 H, Creatinine 2.68 H D, Est GFR (Non-Af Amer) 24 L D, BUN/Creatinine Ratio 29.5 H, Random Glucose 133 H, Calcium 10.5, Calcium Adj for Albumin 10.3 H, Total Bilirubin 1.4 H, AST 18, ALT 15 L, Alkaline Phosphatase 110, Troponin I 0.219 H*, C-Reactive Prot, Quant 4.5 H, B- Natriuretic Peptide 25031 H, Total Protein 7.6, Albumin 3.8, Lipase 119 02/16/20 12:56: Lactic Acid, Venous 2.8 H* 02/16/20 12:56: PT 29.5 H, INR (Anticoag Therapy) 3.11 H, PTT ([place]) 43.9 H 02/16/20 16:08: Lactic Acid, Venous 1.2 02/16/20 16:08: SARS-CoV-2 (PCR) Not detected 02/17/20 05:10: WBC 8.8 D, RBC 3.00 L, Hgb 9.1 L, Hct 28.0 L, MCV 93.3, MCH 30.3, MCHC 32.5, RDW 16.4 H, Plt Count 144 L, MPV 11.4 H, Immature Gran % (Auto) 0.30, Immature Gran # (Auto) 0.03, Neutrophils % 77.8 H, Lymphocytes % 12.2 L, Monocytes % 8.7, Eosinophils % 0.8, Basophils % 0.2, Nucleated RBC % 0.0, Neut rophils # 6.9 H, Lymphocytes # 1.08 L, Monocytes # 0.8, Eosinophils # 0.1, Absolute Basophils 0.0 02/17/20 05:10: Sodium 137, Plasma Sodium 137, Potassium 3.2 L, Chloride 103, Carbon Dioxide 22.9 L, Anion Gap 14.3 H, BUN 75 H, Creatinine 2.39 H, Est GFR (Non-Af Amer) 27 L, BUN/Creatinine Ratio 31.4 H, Random Glucose 91 D, Calcium 8.9, Calcium Adj for Albumin 9.4, Total Bilirubin 1.1, AST 17, ALT 11 L, Alkaline Phosphatase 91, Total Protein 6.2, Albumin 3.0 L 02/17/20 05:10: PT 37.4 H, INR (Anticoag Therapy) 3.98 H 02/17/20 14:30: Troponin I 0.296 H* 02/18/20 06:20: PT 31.4 H, INR (Anticoag Therapy) 3.32 H 02/18/20 06:20: Sodium 135, Plasma Sodium 135, Potassium 3.1 L, Chloride 100, Carbon Dioxide 26.0, Anion Gap 12.1, BUN 66 H, Creatinine 2.31 H, Est GFR (Non- Af Amer) 28 L, BUN/Creatinine Ratio 28.6 H, Random Glucose 93, Calcium 9.6, Calcium Adj for Albumin 9.9, Total Bilirubin 1.1, AST 32, ALT 15 L, Alkaline Phosphatase 97, Total Protein 6.8, Albumin 3.2 L 02/19/20 06:05: PT 26.1 H, INR (Anticoag Therapy) 2.74 H 02/19/20 06:05: Sodium 131 L, Plasma Sodium 131, Potassium 3.7, Chloride 97, Carbon Dioxide 25.2, Anion Gap 12.5, BUN 59 H, Creatinine 2.18 H, Est GFR (Non- Af Amer) 30 L, BUN/Creatinine Ratio 27.1 H, Random Glucose 94, Calcium 8.8, Calcium Adj for Albumin 9.4, Total Bilirubin 0.8, AST 28, ALT 14 L, Alkaline Phosphatase 88, Total Protein 6.2, Albumin 2.9 L Discharge Location: Home Disposition: Home Health Service Home Health Agency: [facility] Condition: Stable Discharge Activity: Activity as tolerated Discharge Diet: Low salt Custodial Therapy: Physical Therapy Referrals: Frank Pérez MD [Primary Care Provider] - Additional Patient Instructions (free text): [facility] new at discharge. Prescriptions (Any new or edited meds): Warfarin Sodium [Coumadin] 2.5 mg PO [email or web address]@1700 #30 tab Transmission Status: Received by [facility] Complete Home Medications List: Complete Home Medication List: Calcitriol 0.25 mcg PO DAILY 11/03/15 Losartan Potassium [Cozaar] 12.5 mg PO DAILY 11/03/15 simvastatin 10 mg tablet 10 mg PO QPM 11/04/17 walker See Rx Instructions .ROUTE .MEDSUPPLY #1 ea 04/13/19 allopurinol 100 mg tablet 200 mg PO DAILY #180 tab 09/29/19 furosemide 40 mg tablet 60 mg PO DAILY #45 tab 12/28/19 nitroglycerin 0.4 mg sublingual tablet 0.4 mg SL Q5-15M PRN #30 tab 02/12/20 Finasteride [Proscar] 5 mg PO DAILY 02/17/20 Isosorbide Mononitrate [Imdur] 60 mg PO DAILY 02/17/20 Potassium Chloride 20 meq PO DAILY 02/17/20 Tamsulosin HCl 0.4 mg PO QPM 02/17/20 Warfarin Sodium 2.5 mg PO SUTH 02/17/20 Warfarin Sodium 5 mg PO [id number] 02/17/20 Warfarin Sodium [Coumadin] 2.5 mg PO [id number]@1700 #30 tab 02/18/20 Furosemide [Lasix] 60 mg PO DAILY tab 02/19/20 Amb Orders for Discharge: Comprehensive Metabolic Panel Time Frame: 3 Days, Facility: [facility], Location: Laboratory Forms: Patient Portal Registration
[2020-02-19] MEDS: TAMSULOSIN HCL 0.4 MG CAP.SR.24H PO SCH (12:39)
[2020-02-19 15:46] VITALS: BP 117/51
== END 2020-02-19 16:35 | disposition home health service (06) | DRG 291 ==
LOC: ER 12:30 → MS 12:30
PROVIDERS: ADMIT Family Medicine; ATTEND Family Medicine
DX: I13.0 Hypertensive heart and chronic kidney disease with heart failure and stage 1 through stage 4 chronic kidney disease, or unspecified chronic kidney disease; J18.9 Pneumonia, unspecified organism; R53.1 Weakness; D64.9 Anemia, unspecified; N18.4 Chronic kidney disease, stage 4 (severe); I25.10 Atherosclerotic heart disease of native coronary artery without angina pectoris; N17.9 Acute kidney failure, unspecified; Z87.891 Personal history of nicotine dependence; F03.90 Unspecified dementia, unspecified severity, without behavioral disturbance, psychotic disturbance, mood disturbance, and anxiety; N40.1 Benign prostatic hyperplasia with lower urinary tract symptoms; Z79.01 Long term (current) use of anticoagulants; I95.9 Hypotension, unspecified; R26.89 Other abnormalities of gait and mobility; I50.9 Heart failure, unspecified; R33.8 Other retention of urine; I48.20 Chronic atrial fibrillation, unspecified